=== PATIENT | male | born 1965 | race Caucasian/White ===

== ENCOUNTER 2018-06-17 16:52 | Inpatient (IN) | payer OTHER ==
[~2018-06-17] VITALS: Ht 180.3 cm; Wt 77.1 kg
--- NOTE | 2018-06-17 17:15 | ED GENERAL ADULT ---
See Addendum History of Present Illness General Chief Complaint: General Adult Stated Complaint: BIBA, +ETOH, R SHOULDER PAIN, BILAT FEET PAIN Source: patient Exam Limitations: no limitations Vital Signs & Intake/Output Vital Signs & Intake/Output Vital Signs Date Time Temp Pulse Resp B/P B/P Pulse O2 O2 Flow FiO2 Mean Ox Delivery Rate 06/18 0841 96.5 84 18 137/94 06/18 0841 96.5 84 18 137/94 96 06/18 0534 98.4 96 16 168/84 97 Room Air 06/18 0530 98.4 96 16 168/84 06/18 0334 98.6 85 18 138/90 95 Room Air 06/18 0330 98.6 85 18 138/90 06/18 0147 98.6 102 16 149/94 06/18 0147 98.6 102 16 149/94 96 Room Air 06/18 0030 98.4 99 16 159/96 96 Room Air 06/18 0028 98.4 99 16 159/96 06/17 2235 98.2 81 20 128/81 97 Room Air 06/17 2204 Room Air 06/17 2017 98.4 78 18 124/76 06/17 2017 98.4 78 18 124/76 96 Room Air 06/17 1815 98.4 94 18 147/81 06/17 1653 98.4 94 18 147/81 95 Room Air ED Intake and Output 06/18 0000 06/17 1200 Intake Total 0 Output Total Balance 0 Intake, Oral 0 Patient 170 lb Weight Weight Reported by Patient Measurement Method Allergies Coded Allergies: No Known Allergies (06/17/18) Triage Note: 53 YO MALE VICKY FROM HOME FOR EVAL OF R SHOULDER PAIN AND PAIN TO BIALTERAL FEET. PT REPORTS HE BROKE HIS NECK 8 MONTHS AGO AND HAS HAD THE PAIN IN HIS R SHOULDER SINCE. PT ALSO REPORTS ALL TOES ON BILATERL FEET WERE ALSO AMPUTATED APPROX 8 MONTHS AGO AND HE IS CURRENTLY HAVING PAIN TO FEET. DENIES RECENT INJURY TO R SHOULDER/ARM/NECK. PT ADMITS TO DRINKING 1/2 PINT VODKA DAILY, STATES LAST DRINK WAS THIS AM AND HE HAD 1 SHOT OF VODKA, REPROTS HX OF SEIZURES WITH W/D. Triage Nurses Notes Reviewed? yes Onset: Gradual Duration: week(s): Timing: recent history HPI: 53 year old male presents to the Emergency Department for pain to his right shoulder and bilateral feet. He states that he fell off a roof 1 year ago. Last night he states that he had seizure, and has a history of seizures but was never put on medication for it. Pt admits to daily ETOH use. He appears intoxicated. He denies chest pain. He complains of pain to his right shoulder which is chronic and also pain to his feet which are chronic. 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 Bilateral dorsalis pedis pulses are normal. He has right anterior shoulder tenderness. (Horace Browne DO) Reconcile Medications No Known Home Medications (Natali MENDES,Raffy Dyson) Past History Travel History Traveled to [place] past 21 day No Medical History Any Pertinent Medical History? 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 No (Horace Browne DO) Review of Systems Review of Systems Constitutional: Reports: see HPI. Denies: fever. EENTM: Reports: no symptoms. Denies: double vision, visual changes, eye pain. Respiratory: Reports: no symptoms. Cardiovascular: Reports: no symptoms. Denies: chest pain. GI: Reports: no symptoms. Genitourinary: Reports: no symptoms. Musculoskeletal: Reports: see HPI, joint pain (right shoulder pain). Skin: Reports: no symptoms. Neurological/Psychological: Reports: other (bilateral pedal neuropathy). Hematologic/Endocrine: Reports: no symptoms. Immunologic/Allergic: Reports: no symptoms. All Other Systems: Reviewed and Negative (Horace Browne DO) Physical Exam Physical Exam General Appearance: alert, awake, anxious, mild distress, intoxicated Head: atraumatic, normal appearance Eyes: Bilateral: normal appearance, PERRL, EOMI. Ears, Nose, Throat: normal ENT inspection Neck: normal inspection Respiratory: no respiratory distress Cardiovascular: regular rate/rhythm Peripheral Pulses: 4+ dorsalis pedis (R), 4+ dorsalis pedis (L) Gastrointestinal: non-tender Extremities: tenderness (Right anterior shoulder), Bilateral toe amputations Neurologic/Psych: awake, alert, oriented x 3 Skin: intact, normal color, warm/dry Core Measures ACS in differential dx? No CVA/TIA Diagnosis: No Sepsis Present: No Sepsis Focused Exam Completed? No (Horace Browne DO) Progress Differential Diagnoses I considered the following diagnoses in my evaluation of the patient: [Fracture, dislocation, neuropathy, alcohol intoxication,] Plan of Care: Orders Procedure Date/time Status Heart Healthy Diet 06/18 B Active ED Holding Orders 06/18 1005 Active Admit to inpatient 06/18 1005 Active Vital Signs 06/18 1005 Active Code Status 06/18 1005 Active CASE MANAGEMENT CONSULT 06/18 0434 Active URINE DRUG SCREEN FOR ER ONLY 06/18 0013 Active Continuous Observation Monitor 06/17 2059 Active CIWA 06/17 205 Active ED CRISIS PSYCH CONSULT 06/17 205 Active Durable Medical Equipment 06/17 1828 Active CIWA 06/17 1719 Active MAGNESIUM 06/17 1719 Complete ETHANOL 06/17 171 Complete COMPREHENSIVE METABOLIC PANEL 06/17 171 Complete CBC WITHOUT DIFFERENTIAL 06/17 171 Complete EKG 06/17 171 Active Current Medications Sig/Buzz Start time Last Medication Dose Stop Time Status Admin Oxycodone/ 1 TAB Q4P PRN 06/18 0030 UNVr 06/18 Acetaminophen 0640 (Percocet) Gabapentin 300 MG Q8 06/18 0017 UNVr 06/18 (Neurontin) 0640 Laboratory Tests 06/18/18 1035: Methadone Screen Pending, Barbiturate Screen Pending, Ur Phencyclidine Scrn Pending, Amphetamines Screen Pending, U Benzodiazepines Scrn Pending, Urine Cocaine Screen Pending, Urine Cannabis Screen Pending 06/17/18 1751: Anion Gap 10, Estimated GFR > 60, BUN/Creatinine Ratio 10.0, Glucose 72, Calcium 8.7, Magnesium 1.7, Total Bilirubin 0.9, AST 111 H, ALT 58, Alkaline Phosphatase 60, Total Protein 6.6, Albumin 3.7, Globulin 2.9, Albumin/Globulin Ratio 1.3, CBC w Diff NO MAN DIFF REQ, RBC 4.79, MCV 91.7, MCH 31.6 H, MCHC 34.5, RDW 17.4 H, MPV 7.8, Gran % 63.2, Lymphocytes % 25.2, Monocytes % 9.9 H, Eosinophils % 1.2, Basophils % 0.5, Absolute Granulocytes 3.9, Absolute Lymphocytes 1.6, Absolute Monocytes 0.6, Absolute Eosinophils 0.1, Absolute Basophils 0, Serum Alcohol 230.0 06/17/18 1719: Methadone Screen Cancelled, Barbiturate Screen Cancelled, Ur Phencyclidine Scrn Cancelled, Amphetamines Screen Cancelled, U Benzodiazepines Scrn Cancelled, Urine Cocaine Screen Cancelled, Urine Cannabis Screen Cancelled Initial ED EKG: NSR (@ 89 bpm) (Horace Browne DO) Departure Departure Disposition: STILL A PATIENT Condition: Stable Departure Forms: Customer Survey General Discharge Information Comments 06/17/18 9 PM She complains of suicidal ideation. He will be monitored for CIWA scores during the night. He'll be signed out to Dr. Hurst at 11 PM. He is for crisis evaluation in the a.m. (Horace Browne DO) Departure Clinical Impression Primary Impression: Alcohol dependency Secondary Impressions: Chronic pain, Suicidal ideation, Vomiting Prescriptions: Current Visit Scripts No Known Home Medications Comments 06/18/18 0:15... pt had ciwa score of 12... given history of seizure, pt will merits admission, will require case management eval in AM 06/18/18, 2:02am... pt reports episode of vomiting "dark blood" no clots, not bright red. He flushed the toilet prior to showing staff. He notes several episodes over the past 3 days. Hct and vitals stable. Will give protonix 40mg iv x 1... pt sleeping comfortably... to be evaluated by case management in AM for admission (Natali MENDES,Raffy Dyson) Admission Note Spoke With: Alexa MENDES,Chanel Pompa Documentation of Exam: Documentation of any treatments & extenuating circumstances including Concerns Regarding Discharge (functional status, medication knowledge or non-compliance, living conditions, etc.) that warrant an admission rather than observation: [ Patient has self-reported history of alcohol withdrawal seizure yesterday. Patient did fall and has an acute on chronic proximal humeral fracture of the right humerus. Patient received state approval for admission for alcohol withdrawal. Patient will need Ativan based on his CIWA score. Social work consultation for further treatment once he is medically discharged. He will need an orthopedic consultation. Pain control, keep arm in sling.] Alcohol Withdrawl Admission ED Alcohol Detox Admission d/t: DTs/Seizure w/i last year (Lucrecia MENDES,Jamin Syed) Critical Care Note Critical Care Note Critical Care Time: non-applicable (Horace Browne DO)
--- NOTE | 2018-06-17 18:09 | RADIOLOGY REPORT ---
EXAMINATION: XR SHOULDER, RIGHT CLINICAL INFORMATION: Right shoulder pain. History of fracture. COMPARISON: None TECHNIQUE: Two views of the right shoulder. FINDINGS: There is a chronic comminuted fracture deformity with suspected bony callus formation surrounding the humeral head. Oblique fracture line is visible as well. Sclerotic changes are present at the humeral head. There are mild degenerative changes of the acromioclavicular joint. No discrete soft tissue abnormality seen. The imaged right lung is clear. IMPRESSION: Extensive heterotopic bone and callus formation with an oblique fracture through the humeral head and neck region. The possibility of an acute on chronic fracture cannot be ruled out. Incomplete bony healing phenomenon may also be present at the fracture site. If indicated, further evaluation with an MRI or CT study could be considered in follow-up.
[2018-06-17 18:15] VITALS: BP 147/81
[2018-06-17 18:21] LABS: ABSOLUTE BASOPHIL COUNT 0 /CUMM (0.0-0.2); ABSOLUTE EOSINOPHIL COUNT 0.1 /CUMM (0.0-0.7); ABSOLUTE GRANULOCYTE CT 3.9 /CUMM (1.4-6.5); ABSOLUTE LYMPH COUNT 1.6 /CUMM (1.2-3.4); ABSOLUTE MONOCYTE COUNT 0.6 /CUMM (0.10-0.60); BASOPHIL % 0.5 % (0.0-2.0); EOSINOPHIL % 1.2 % (0-5); GRANULOCYTE % 63.2 % (42.2-75.2); HEMATOCRIT 43.9 % (42-52); MEAN CORPUSCULAR HGB 31.6 PG (27.0-31.0); MEAN CORPUSCULAR HGB CONC 34.5 G/DL (33.0-37.0); MEAN CORPUSCULAR VOLUME 91.7 FL (80.0-94.0); MEAN PLATELET VOLUME 7.8 FL (7.4-10.4); PLATELET COUNT 155 /CUMM (130-400); RBC DISTRIBUTION WIDTH 17.4 % (11.5-14.5); RED BLOOD CELL CT 4.79 /CUMM (4.70-6.10); WHITE BLOOD CELL COUNT 6.2 /CUMM (4.8-10.8)
[2018-06-17 20:17] VITALS: BP 124/76
[2018-06-18] VITALS (10 sets, daily range): BP systolic 130–168; BP diastolic 70–99
--- NOTE | 2018-06-18 11:23 | History & Physical ---
Kaylyn MENDESShanelle 06/18/18 1122: General Information and [facility] MD Statement: I have seen and personally examined SILVANA HOWE and documented this H&P. The patient is a 53 year old M who presented with a patient stated chief complaint of ALCOHOL DETOX, SHOULDER PAIN Source of Information: patient Exam Limitations: no limitations History of Present Illness: This is a 53 year old male with a PMH of fall resulting in reported coma in setting of epidural hematoma, cervical spine fracture, 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 The patient is currently homeless. He has a long history of alcohol abuse since he was young and reports that he had a seizure yesterday. The patient states that he has a history of seizures associated with alcohol use, usually does not remember the episode. However he does remember the episode yesterday clearly. He usually drinks 2 pints of vodka per day. He reports that after he drank the first pint yesterday, he went to sleep, woke up, drank the second pints and then woke up hours later covered in urine. His last drink was last night. He states that he thinks his last seizure episode was about a month ago but is not sure. The patient states that his seizures are usually grand mal in nature. The patient states that he usually drinks "to kill the pain" that he has from his previous accidents. He states that without alcohol, he has chronic abdominal pain, back pain, headaches , daily morning vomiting, eye blurriness. He states that has dizzy spells chronically throughout the day. The patient has never been to rehabilitation or detox. The patient states that he has had previous suicide attempts, "I cut my wrists years ago", never has been admitted to a psych rosales or seen a psychiatrist, never has been on any psychiatric medications. During interview, the patient states that he gets "so angry that he wants to punch somebody". The patient states that while in the ED, he vomited clots of blood 3 times. He states that this happens to him "on and off". His last episode of this was a month ago. The patient states that he normally has diarrhea at baseline and notes that it is usually black or brown. He states that he has abdominal pain if he does not drink alcohol. He also states that he has had chest pain on and off in the previous several weeks and gets short of breath when walking even 10 feet. The patient states that he also had an earache and went to [place], had an episode of near bleeding but stated that they've refused to treat him for an unspecified reason. He denies any dysuria. The patient states all of his problems started when he fell off a roof 2 years ago causing him to be in a coma for 12 months. He stated that he had a brain hematoma, unspecified that was ultimately evacuated and required feeding tube. At the time, he also fractured his cervical spine. 7 months ago, he was hospitalized for frostbite with subsequent amputation of his bilateral toes and also sustained right shoulder fracture status post fall. The patient has had no follow-up for his medical problems and has no PCP. He states that he has current bilateral foot phantom pain. The patient does not ambulate with a walker or cane. 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 He used to live with his mother but after she , his siblings still the house and did not give him any of the money from the sale forcing him to become homeless. At this point, the patient has not spoken to his family in quite some time. He states that he has "nowhere to go". He states that he used to use IV heroin 5 years ago and over the past several years now abuses opiates intranasally. The patient smokes 2 packs of cigars per day since he was a child. He states that sometimes he smokes marijuana. 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 Psychosocial History Smoking Status: Current Everyday Smoker ETOH Use: heavy use Illicit Drug Use: marijuana Review of Systems Review of Systems Constitutional: Reports: weakness. EENTM: Reports: blurred vision, ear pain. Cardiovascular: Reports: chest pain. Respiratory: Reports: short of breath. GI: Reports: abdominal pain, diarrhea, nausea, vomiting. Genitourinary: Reports: no symptoms. Musculoskeletal: Reports: back pain, joint pain. Skin: Reports: no symptoms. Neurological/Psychological: Reports: anxiety, depressed, emotional problems. Hematologic/Endocrine: Reports: no symptoms. Exam & Diagnostic Data Last 24 Hrs of Vital Signs/I&O Vital Signs Date Time Temp Pulse Resp B/P B/P Pulse O2 O2 Flow FiO2 Mean Ox Delivery Rate 06/18 1329 97.4 78 18 154/99 06/18 1328 97.4 78 18 154/99 96 Room Air 06/18 1214 Room Air 06/18 1147 96.9 76 18 141/94 06/18 1125 96.9 76 18 141/94 97 06/18 0841 96.5 84 18 137/94 06/18 0841 96.5 84 18 137/94 96 06/18 0534 98.4 96 16 168/84 97 Room Air 06/18 0530 98.4 96 16 168/84 06/18 0334 98.6 85 18 138/90 95 Room Air 06/18 0330 98.6 85 18 138/90 06/18 0147 98.6 102 16 149/94 06/18 0147 98.6 102 16 149/94 96 Room Air 06/18 0030 98.4 99 16 159/96 96 Room Air 06/18 0028 98.4 99 16 159/96 06/17 2235 98.2 81 20 128/81 97 Room Air 06/17 2204 Room Air 06/17 2017 98.4 78 18 124/76 06/17 2017 98.4 78 18 124/76 96 Room Air 06/17 1815 98.4 94 18 147/81 06/17 1653 98.4 94 18 147/81 95 Room Air Intake & Output 06/18 1600 06/18 0800 06/18 0000 Intake Total 0 Output Total Balance 0 Intake, Oral 0 Patient 170 lb Weight Weight Reported by Patient Measurement Method Physical Exam General Appearance Alert, Oriented X3, Cooperative, No Acute Distress Skin No Rashes Skin Temp/Moisture Exam: Warm/Dry Sepsis Skin Exam (color): Normal for Ethnicity HEENT Atraumatic, PERRLA, EOMI, Mucous Membr. moist/pink Cardiovascular Regular Rate, Normal S1, Normal S2, No Murmurs Lungs Clear to Auscultation, Normal Air Movement Abdomen Normal Bowel Sounds, Soft, abd pain on palpation epigastric Neurological Normal Speech, Strength at 5/5 X4 Ext, Normal Tone, Sensation Intact, Cranial Nerves 3-12 NL, Reflexes 2+ Extremities No Clubbing, No Cyanosis, No Edema Vascular Normal Pulses, Pulses Symmetrical Last 24 Hrs of Labs/[place]: Laboratory Tests 06/18/18 1035: Urine Opiates Screen 267, Methadone Screen < 40, Barbiturate Screen < 60, Ur Phencyclidine Scrn < 6.00, Amphetamines Screen < 100, U Benzodiazepines Scrn < 85, Urine Cocaine Screen < 50, Urine Cannabis Screen 23.70 06/17/18 1751: Anion Gap 10, Estimated GFR > 60, BUN/Creatinine Ratio 10.0, Glucose 72, Calcium 8.7, Phosphorus 3.9, Magnesium 1.7, Total Bilirubin 0.9, AST 111 H, ALT 58, Alkaline Phosphatase 60, Troponin I 0.02, Total Protein 6.6, Albumin 3.7, Globulin 2.9, Albumin/Globulin Ratio 1.3, CBC w Diff NO MAN DIFF REQ, RBC 4.79, MCV 91.7, MCH 31.6 H, MCHC 34.5, RDW 17.4 H, MPV 7.8, Gran % 63.2, Lymphocytes % 25.2, Monocytes % 9.9 H, Eosinophils % 1.2, Basophils % 0.5, Absolute Granulocytes 3.9, Absolute Lymphocytes 1.6, Absolute Monocytes 0.6, Absolute Eosinophils 0.1, Absolute Basophils 0, Serum Alcohol 230.0 06/17/18 1719: Methadone Screen Cancelled, Barbiturate Screen Cancelled, Ur Phencyclidine Scrn Cancelled, Amphetamines Screen Cancelled, U Benzodiazepines Scrn Cancelled, Urine Cocaine Screen Cancelled, Urine Cannabis Screen Cancelled Assessment/Plan Assessment: This is a 53 year old male with a PMH of fall resulting in reported coma in setting of epidural hematoma, cervical spine fracture, 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 Patient notes that he drinks to relieve his neck, foot, shoulder pain. His last drink was yesterday and he usually drinks 2 pints of vodka per day. He states that he is interested in going to rehabilitation. While in the ED he has 3 episodes of bloody vomitus, unwitnessed. He also states that he is actively suicidal, has had past suicide attempts. In the ED, vitals were temperature 98.4, heart rate 94, respiratory rate 18, blood pressure 147/81, 95% oxygen saturation on room air. The patient's labs are within normal limits except for AST of 111, alcohol level 230, U tox otherwise clear. Troponin negative. The patient's shoulder x-ray shows an oblique fracture through the humeral head and neck, cannot rule out acute on chronic. Physical exam was pertinent only for amputation of his bilateral feet and right arm in a sling. Assessment -Alcohol detox in setting of previous history of alcohol-related seizures -Bilateral foot pain status post amputation -Right shoulder pain status post injury, cannot rule out acute on chronic right oblique fracture of the humerus -Suicidal ideation in setting of previous suicide attempts -Unwitnessed hematemesis, stable CBC -Recent history of chest pain and shortness of breath on exertion -Social issues including homelessness Plan -Admit patient to general medical floors for evaluation and treatment -Trend troponins and EKGs -Follow up CBC at 6 PM for hematemesis, stool hemoccults -PT/INR -CIWA with Ativan per CIWA and standing dose of Ativan 2 mg every 6 hours -Ortho consult with physical therapy and occupational therapy -Pain medications Tylenol and ibuprofen -Give thiamine, multivitamin, folate -Zofran for nausea -Case management/social work -Seizure precautions -One-to-one sitter for suicidal ideation with psychiatric consult -21 mg nicotine patch -Records from [facility] DVT prophylaxis with only Alps in setting of hematemesis Patient is full code Regular diet with NO KNIVES OR FORKS As Ranked By This Provider Problem List: 1. Vomiting 2. Suicidal ideation 3. Chronic pain 4. Alcohol dependency Core Measures/Misc (07/14) Acute Coronary Syndrome ACS Diagnosis: No Congestive Heart Failure Congestive Heart Failure Diagnosis No Cerebrovascular Accident CVA/TIA Diagnosis: No VTE (View Protocol) VTE Risk Factors Acute Medical Illness No Mechanical VTE Prophylaxis d/t N/A MechProphylax Ordered No VTE Pharm Prophylaxis d/t Bleeding (Active) Sepsis (View protocol) Sepsis Present: No If YES complete Sepsis Event Note If YES complete Sepsis Event Note Orville Myers 06/18/18 1400: Core Measures/Misc (07/14) Sepsis (View protocol) If YES complete Sepsis Event Note If YES complete Sepsis Event Note Attending MD Review Statement Attending Statement Attending MD Statement: examined this patient, discuss w/resident/PA/CHAR CONVEYOR TENDER, agreed w/resident/PA/CHAR CONVEYOR TENDER, reviewed EMR data (avail), discussed with case mgmt Attending Assessment/Plan: 53 yr old male with pmf of etoh abuse, 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 Pt also had 6-7 months ago frostbite due to which he ended up loosing all his toes. Pt is currently homeless and drinks about 1-2 pints of vodka a day and also does one bag of heroin a week and smokes 2 packs of cigars a day. pt reports having seizure last night and was brought by ambulance to the ED and want to undergo detox. Alcohol intoxication and seizure disorder with seizure episode - pt will be admitted to medicine and we will put him on ciwa protocol and will monitor him for seizures. will start him on ativan 2mg po q6h and prn for withdrawl and seizrues. will start him on mvi, folic acid and thiamine and will give banana bag if not already given in er. Suicidal ideations- will get psych consult. Rt shoulder fracture- will get records from [facility] and will get ortho consult. d/w pt the care plan. Will get SW consult for rehab options.
--- NOTE | 2018-06-18 13:51 | Admission Certification ---
Admission Certification Certification Statement - As attending physician, I certify that at the time of - admission, based on clinical presentation, severity of - symptoms, need for further diagnostic testing and - therapeutic interventions, and risk of adverse outcomes - without in-hospital treatment, in my clinical assessment, - this patient requires an acute hospital stay for a minimum - of two nights or longer. I have also considered psychsocial - factors such as support system, advanced age, financial - issues, cognitive issues, and failed out-patient treatments, - past re-admission history, safety of patient, and lack of - compliance as applicable. Specific rationale supporting this admission is: etoh intoxication and alcohol withdrawl seizure.
--- NOTE | 2018-06-18 18:10 | RADIOLOGY REPORT ---
EXAMINATION: XR CHEST, 2 VIEWS CLINICAL INFORMATION: Tenderness in the chest wall. Presumptive diagnosis: Rib fracture COMPARISON: None TECHNIQUE: PA and lateral views of the chest were obtained. FINDINGS: No consolidation, pneumothorax, or pleural effusion. Coarse lung markings overlying the left midlung likely correspond to the overlying pleural parenchymal scarring. There is mild dependent atelectasis bilaterally. Cardiac and mediastinal contours are normal. Pulmonary vasculature is unremarkable. Trachea is midline. Old healed fractures are suspected at the left ribs posteriorly including the left third, fifth, sixth, and seventh ribs. No acute fractures are identified. There is an old healed fracture at the right proximal humerus. IMPRESSION: No acute cardiopulmonary findings. Old healed left-sided rib fractures. No acute fractures are identified.
[2018-06-18 19:01] LABS: ABSOLUTE BASOPHIL COUNT 0 /CUMM (0.0-0.2); ABSOLUTE EOSINOPHIL COUNT 0.1 /CUMM (0.0-0.7); ABSOLUTE GRANULOCYTE CT 3.1 /CUMM (1.4-6.5); ABSOLUTE LYMPH COUNT 1.1 /CUMM (1.2-3.4); ABSOLUTE MONOCYTE COUNT 0.4 /CUMM (0.10-0.60); BASOPHIL % 0.3 % (0.0-2.0); EOSINOPHIL % 1.9 % (0-5); HEMATOCRIT 41.1 % (42-52); MEAN CORPUSCULAR HGB 31.6 PG (27.0-31.0); MEAN CORPUSCULAR HGB CONC 34.3 G/DL (33.0-37.0); MEAN CORPUSCULAR VOLUME 92.1 FL (80.0-94.0); MEAN PLATELET VOLUME 7.9 FL (7.4-10.4); PLATELET COUNT 121 /CUMM (130-400); RBC DISTRIBUTION WIDTH 17.7 % (11.5-14.5); RED BLOOD CELL CT 4.46 /CUMM (4.70-6.10); WHITE BLOOD CELL COUNT 4.7 /CUMM (4.8-10.8)
[2018-06-19] VITALS (9 sets, daily range): BP systolic 120–160; BP diastolic 60–90
--- NOTE | 2018-06-19 08:25 | PN- Housestaff ---
Kaylyn MENDES,Shanelle 06/[birth year]/18823: Subjective Follow-up For: Alcohol detox Right shoulder pain Suicidal ideation Vague chest pain Abdominal pain Homelessness Subjective: Patient seen and examined. He states that he is in a lot of pain this morning in his right shoulder. He denies any current chest pain, was worked up for ACS yesterday. The patient denies any continued hematemesis that he reported in the ED, unwitnessed by others. The patient is scoring CIWA of 3 for anxiety and nausea/vomiting, last night was 16. His vitals are stable. This afternoon, patient states that he has abdominal pain that is more tender on palpation, nausea, he is scared to eat as to worsen the pain. He has had a bowel movement this morning. Review of Systems Constitutional: Reports: no symptoms. Cardiovascular: Reports: no symptoms. Respiratory: Reports: no symptoms. Gastrointestinal: Reports: abdominal pain. Genitourinary: Reports: no symptoms. Musculoskeletal: Reports: joint pain. Skin: Reports: no symptoms. Neurological/Psychological: Reports: anxiety. Objective Last 24 Hrs of Vital Signs/I&O Vital Signs Date Time Temp Pulse Resp B/P B/P Pulse O2 O2 Flow FiO2 Mean Ox Delivery Rate 06/19 1403 97.4 68 20 160/70 93 Room Air 06/19 0555 97.7 73 20 140/80 06/19 0400 97.0 61 20 160/90 06/19 0400 97.7 73 20 140/80 96 Room Air 06/19 0000 97.1 62 20 160/90 06/19 0000 97.1 62 20 160/90 94 Room Air 06/18 2011 97.7 71 20 130/70 96 Room Air 06/18 1854 97.2 68 18 145/96 06/18 1854 97.2 68 18 145/96 96 Room Air 06/18 1626 Room Air 06/18 1621 98.9 66 22 165/94 06/18 1612 98.9 66 22 165/94 97 Room Air Intake & Output 06/19 1600 06/19 0800 06/19 0000 Intake Total 800 700 Output Total Balance 800 700 Intake, Oral 800 700 Patient 170 lb Weight Weight Reported by Patient Measurement Method Physical Exam General Appearance: Alert, Oriented X3, Cooperative, Mild Distress Skin: No Rashes, No Breakdown, No Significant Lesion Skin Temp/Moisture Exam: Warm/Dry Sepsis Skin Exam (color): Normal for Ethnicity HEENT: Atraumatic, PERRLA, EOMI, Mucous Membr. moist/pink Cardiovascular: Regular Rate, Normal S1, Normal S2, No Murmurs Lungs: Clear to Auscultation, Normal Air Movement Abdomen: Normal Bowel Sounds, Soft, No Hepatospenomegaly, No Masses, patient has pain throughout the abdomen on palpation. Neurological: Normal Speech, Strength at 5/5 X4 Ext, Normal Tone, Sensation Intact, Cranial Nerves 3-12 NL Extremities: No Cyanosis Vascular: Normal Pulses Current Medications: Current Medications Sig/Buzz Start time Last Medication Dose Route Stop Time Status Admin Acetaminophen 650 MG Q6PRN PRN 06/18 1315 AC PO Folic Acid 1 MG DAILY 06/18 1317 AC 06/19 PO 0805 Gabapentin 300 MG Q8 06/18 0017 AC 06/19 PO 1426 Ibuprofen 400 MG Q6P PRN 06/19 1445 DC PO Ibuprofen 400 MG Q6P PRN 06/18 1315 DC 06/19 PO 0403 Ketorolac 0 .STK-MED ONE 06/18 1900 DC Tromethamine .ROUTE Ketorolac 30 MG ONCE ONE 06/18 1800 DC 06/18 Tromethamine IV 06/18 1801 1904 Lorazepam 0 Q1P PRN 06/19 1445 AC PO Lorazepam 2 MG Q6 06/19 1200 AC 06/19 PO 1213 Lorazepam 0 .STK-MED ONE 06/19 0603 DC PO Lorazepam 1 MG ONE ONE 06/19 0600 DC 06/19 PO 06/19 0601 0601 Lorazepam 0 .STK-MED ONE 06/18 1900 DC .ROUTE Lorazepam 0 .STK-MED ONE 06/18 1852 DC PO Lorazepam 0 .STK-MED ONE 06/18 1625 DC .ROUTE Lorazepam 2 MG FOUR TIMES A DAY 06/18 1400 DC 06/19 PO 0803 Lorazepam 0 Q1P PRN 06/18 1330 DC 06/18 IV 2222 Multivitamins 1 TAB DAILY 06/18 1317 AC 06/19 PO 0805 Nicotine 2 MG Q2P PRN 06/18 2015 AC 06/19 PO 0649 Nicotine 21 MG Q24 06/18 1318 AC 06/19 TOP 0805 Omeprazole 40 MG DAILY AC 06/19 0910 AC 06/19 PO 1008 Ondansetron HCl 4 MG Q8P PRN 06/18 1315 AC IV Oxycodone/ 0 .STK-MED ONE 06/18 1618 DC Acetaminophen PO Oxycodone/ 1 TAB Q4P PRN 06/18 0030 AC 06/19 Acetaminophen PO 1426 Thiamine HCl 100 MG DAILY 06/18 1317 AC 06/19 PO 0805 Last 24 Hrs of Lab/[place] Results Last 24 Hrs of Labs/Mics: Laboratory Tests 06/19/18 0905: Anion Gap 6, Estimated GFR > 60, BUN/Creatinine Ratio 11.4, CBC w Diff NO MAN DIFF REQ, RBC 4.78, MCV 93.2, MCH 31.0, MCHC 33.3, RDW 17.8 H, MPV 8.5, Gran % 70.4, Lymphocytes % 18.0 L, Monocytes % 7.9, Eosinophils % 3.4, Basophils % 0.3 , Absolute Granulocytes 3.5, Absolute Lymphocytes 0.9 L, Absolute Monocytes 0.4 , Absolute Eosinophils 0.2, Absolute Basophils 0 06/18/18 1837: Troponin I < 0.01, CBC w Diff NO MAN DIFF REQ, RBC 4.46 L, MCV 92.1, MCH 31.6 H, MCHC 34.3, RDW 17.7 H, MPV 7.9, Gran % 66.0, Lymphocytes % 24.3, Monocytes % 7.5, Eosinophils % 1.9, Basophils % 0.3, Absolute Granulocytes 3.1, Absolute Lymphocytes 1.1 L, Absolute Monocytes 0.4, Absolute Eosinophils 0.1, Absolute Basophils 0 06/18/18 1625: PT 11.0, INR 1.01 Orders CIWA Score (last 24 hrs): 3 max 16 Assessment/Plan Assessment: This is a 53 year old male with a PMH of fall resulting in reported coma in setting of epidural hematoma, cervical spine fracture, 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 Patient notes that he drinks to relieve his neck, foot, shoulder pain. His last drink was yesterday and he usually drinks 2 pints of vodka per day. He states that he is interested in going to rehabilitation. While in the ED he has 3 episodes of bloody vomitus, unwitnessed. He also states that he is actively suicidal, has had past suicide attempts. In the ED, vitals were temperature 98.4, heart rate 94, respiratory rate 18, blood pressure 147/81, 95% oxygen saturation on room air. The patient's labs are within normal limits except for AST of 111, alcohol level 230, U tox otherwise clear. Troponin negative. The patient's shoulder x-ray shows an oblique fracture through the humeral head and neck, cannot rule out acute on chronic. Chest x-ray showed old left healed rib fractures, no acute pulmonary issues. Physical exam was pertinent only for amputation of his bilateral feet and right arm in a sling. Assessment -Alcohol detox in setting of previous history of alcohol-related seizures -Bilateral foot pain status post amputation -Right shoulder pain status post injury, cannot rule out acute on chronic right oblique fracture of the humerus -Suicidal ideation in setting of previous suicide attempts -Unwitnessed hematemesis, stable CBC -Recent history of chest pain and shortness of breath on exertion, ACS ruled out -Abdominal pain in the setting of possible gastritis -Social issues including homelessness -Mild thrombocytopenia most likely secondary to alcoholism Plan -Admitted patient to general medical floors for evaluation and treatment -Troponins and EKGs ruled out ACS -Follow up CBC is normal, no anemia secondary to reported hematemesis -CIWA with Ativan per CIWA and standing dose of Ativan 2 mg every 6 hours, continue for now. We will switch all IV Ativan to by mouth. -Continue Alupent and as an anticonvulsant precaution -Ortho was consulted and stated that as patient is acutely detoxing, they would do no intervention at this time on the right shoulder, they believe the injury to be more of a chronic nature so are requesting that we referred the patient for follow-up outpatient -Pain medications Tylenol and Percocet, ibuprofen stopped for potential gastritis. Protonix 40 mg started. -Etiology of patient's abdominal pain is likely gastritis but we will do CT abdomen and pelvis with contrast to further elucidate the cause. -Guaiac all stools -Give thiamine, multivitamin, folate -Zofran for nausea -Case management/social work for placement once the patient is detoxed. -Seizure precautions -Psychiatry saw the patient for his depression and suicidal ideation. 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 The patient has significant psychosocial stressors as he is homeless. The patient has never had psychiatric treatment or detox. Has a long history of drug and alcohol use. However, acutely, the patient is not suicidal so we will DC the one-to-one sitter and allow patient to have meals with utensils. Psychiatry will reassess the patient when his mental state is clearer regarding the need for an antidepressant -4 pain, psychiatry has suggested caution with opiates given his history of opiate dependence. We will continue to use standard orders, lowest effective doses for pain control. Patient is requiring Percocet, is unable to have NSAIDs as he has evidence of gastritis. -21 mg nicotine patch DVT prophylaxis with only Alps in setting of hematemesis and thrombocytopenia Patient is full code Regular diet Problem List: 1. Shoulder pain, right 2. Vomiting 3. Suicidal ideation 4. Chronic pain 5. Alcohol dependency Pain Ratin Pain Location: Right shoulder and abdomen and bilateral feet, phantom pain Pain Goal: Pain 4 or less Pain Plan: Tylenol and Percocet, no ibuprofen or other NSAIDs secondary to potential gastritis Tomorrow's Labs & Rationales: None Orville Myers 06/19/18 1440: Attending MD Review Statement Attending Statement Attending MD Statement: examined this patient, discuss w/resident/PA/[facility] NURSE, agreed w/resident/PA/[facility]ERAPY NURSE, reviewed EMR data (avail), discussed with nursing, discussed with case mgmt Attending Assessment/Plan: Etoh abuse and withdrawl - CIWA score high yesterday. would cont on ativan 2mg po q6h. would cont prn ativan. will get SW to see the pt to discuss rehab options. Nicotine dependence- cont on patch and prn nicotine gum. Suicidal ideation- [facility]. d/w pt the care plan.
[2018-06-19 10:00] LABS: ABSOLUTE BASOPHIL COUNT 0 /CUMM (0.0-0.2); ABSOLUTE EOSINOPHIL COUNT 0.2 /CUMM (0.0-0.7); ABSOLUTE GRANULOCYTE CT 3.5 /CUMM (1.4-6.5); ABSOLUTE LYMPH COUNT 0.9 /CUMM (1.2-3.4); ABSOLUTE MONOCYTE COUNT 0.4 /CUMM (0.10-0.60); BASOPHIL % 0.3 % (0.0-2.0); EOSINOPHIL % 3.4 % (0-5); GRANULOCYTE % 70.4 % (42.2-75.2); HEMATOCRIT 44.6 % (42-52); MEAN CORPUSCULAR HGB CONC 33.3 G/DL (33.0-37.0); MEAN CORPUSCULAR VOLUME 93.2 FL (80.0-94.0); MEAN PLATELET VOLUME 8.5 FL (7.4-10.4); PLATELET COUNT 119 /CUMM (130-400); RBC DISTRIBUTION WIDTH 17.8 % (11.5-14.5); RED BLOOD CELL CT 4.78 /CUMM (4.70-6.10)
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
[2018-06-19] MEDS ORDERED: GABAPENTIN300 M2 PO (14:33)
[2018-06-19] MEDS ORDERED: FOLIC ACID1 M1 PO (14:33)
[2018-06-19] MEDS ORDERED: VITAMIN B-1100 MG PO (14:33)
[2018-06-19] MEDS ORDERED: ONE DAILY MULT1 EAC2 PO (14:33)
--- NOTE | 2018-06-19 14:38 | Patient Discharge Instructions ---
Discharge Instructions General Discharge Information You were seen/treated for: ALCOHOL DETOX RIGHT SHOULDER PAIN PLACEMENT Special Instructions: PLEASE FOLLOW UP WITH PCP IN ONE WEEK PLEASE FOLLOW UP WITH PSYCHIATRY IN ONE WEEK PLEASE FOLLOW UP WITH ORTHO IN ONE WEEK Diet Continue normal diet: Yes Activity Full Activity/No Limits: Yes Acute Coronary Syndrome Inclusion Criteria At DC or during hospital stay patient has or had the following: ACS DIAGNOSIS No Discharge Core Measures Meds if any: Prescribed or Continued at Discharge Meds if any: NOT Prescribed or Continued at Discharge Congestive Heart Failure Inclusion Criteria At DC or during hospital stay patient has or had the following: CHF DIAGNOSIS No Discharge Core Measures Meds if any: Prescribed or Continued at Discharge Meds if any: NOT Prescribed or Continued at Discharge Cerebrovascular accident Inclusion Criteria At DC or during hospital stay patient has or had the following: CVA/TIA Diagnosis No Discharge Core Measures Meds if any: Prescribed or Continued at Discharge Meds if any: NOT Prescribed or Continued at Discharge Venous thromboembolism Inclusion Criteria VTE Diagnosis No VTE Type NONE VTE Confirmed by (Test) NONE Discharge Core Measures - Per Current guidelines, there needs to be overlap - treatment for the first 5 days of Warfarin therapy. - If discharged on Warfarin prior to 5 days of - overlap therapy, the patient will need to be - assessed for post discharge needs including - *Post discharge parental anticoagulation - *Warfarin and/or parental anticoagulation education - *Follow up date to check INR post discharge At least 5 days overlap therapy as Inpatient No Meds if any: Prescribed or Continued at Discharge Note: Overlap Therapy is Warfarin and Anticoagulant Meds if any: NOT Prescribed or Continued at Discharge
--- NOTE | 2018-06-19 21:26 | CT SCAN REPORT ---
EXAMINATION: CT ABDOMEN AND PELVIS WITH CONTRAST CLINICAL INFORMATION: Abdominal pain. Hematemesis. COMPARISON: None TECHNIQUE: Multidetector volumetric imaging was performed of the abdomen and pelvis following IV administration of 95 mL of Optiray 320 intravenous contrast. Sagittal and coronal reformatted images were obtained on the technologist's workstation. DLP: 412.13 mGy-cm FINDINGS: LUNG BASES: The visualized lung bases are unremarkable. LIVER, GALLBLADDER, AND BILIARY TREE: There is diffuse low attenuation of liver parenchyma due to fatty change. No focal liver lesion. No intrahepatic bile duct dilatation. Right lobe of liver measures 22 cm superior inferior, hepatomegaly. The gallbladder is unremarkable with no evidence of radiopaque gallstones, gallbladder wall thickening, or obvious pericholecystic inflammatory changes. PANCREAS: There is subtle edema around the pancreatic head and uncinate process consistent with a mild pancreatitis. There is no pseudocyst. There is no pancreatic mass. There is no pancreatic duct dilatation. SPLEEN: Unremarkable. ADRENAL GLANDS: Unremarkable. KIDNEYS AND URETERS: The kidneys are normal in size, shape, and attenuation. No hydronephrosis, hydroureter, or calculi seen. No perinephric stranding. There is a 5 mm hypodensity in the periphery cortex upper pole right kidney too small to characterize. Statistically likely small cyst. BLADDER: Unremarkable. GASTROINTESTINAL TRACT: There is mild diverticular changes of the colon. There is no acute abnormality of the bowel. No bowel obstruction. No bowel wall thickening or edema. Moderate volume of stool throughout the colon. The appendix is normal. The small bowel loops are unremarkable. ABDOMINAL WALL: No significant hernia is appreciated. LYMPH NODES: Normal. VASCULAR: There is normal enhancement of the abdominal and pelvic vasculature. There is no varices. There are small calcifications at the wall of the aorta at the bifurcation but no aneurysm or dissection of the aorta. There is normal enhancement of the celiac axis. There is normal enhancement of the WAYNE. The SMA originates from the celiac axis. This is a normal variant. PELVIC VISCERA: Unremarkable. OSSEOUS STRUCTURES: Unremarkable. IMPRESSION: 1. Subtle edema around the pancreatic head and uncinate process consistent with pancreatitis. Clinically correlate. 2. Hepatomegaly with diffuse fatty change of liver.
[2018-06-20 06:40] VITALS: BP 140/100
--- NOTE | 2018-06-20 07:40 | PN- Housestaff ---
Kalyani Reynoso 06/20/18 0740: Subjective Follow-up For: Alcohol detox Pancreatitis Subjective: Patient is seen and examined. He looks very lethargic this morning. CT abdomen pelvis is significant for pancreatitis and also he has an elevated lipase. Patient continued to report of nausea and vomiting. He also reports of severe right shoulder pain. Review of Systems Constitutional: Reports: see HPI. Objective Last 24 Hrs of Vital Signs/I&O Vital Signs Date Time Temp Pulse Resp B/P B/P Pulse O2 O2 Flow FiO2 Mean Ox Delivery Rate 06/20 0851 145/82 06/20 0640 97.4 84 20 140/100 94 Room Air 06/19 2130 98.6 74 20 120/60 96 06/19 1403 97.4 68 20 160/70 93 Room Air 06/19 1400 97.7 73 20 140/80 06/19 1200 97.7 73 20 140/80 06/19 1000 97.7 73 20 140/80 Intake & Output 06/20 1600 06/20 0800 06/20 0000 Intake Total Output Total 400 Balance -400 Output, Urine 400 Physical Exam General Appearance: Cooperative, No Acute Distress, DROWSY Skin: No Rashes Sepsis Skin Exam (color): Normal for Ethnicity HEENT: Atraumatic, PERRLA Neck: Supple Cardiovascular: Normal S1, Normal S2, TACHYCARDIA Lungs: Clear to Auscultation, Normal Air Movement Abdomen: Normal Bowel Sounds, Soft, TENDER ON PALPATION Extremities: RIGHT ARM IN ARM SLING Current Medications: Current Medications Sig/Buzz Start time Last Medication Dose Route Stop Time Status Admin Acetaminophen 650 MG Q6PRN PRN 06/18 1315 AC PO Folic Acid 1 MG DAILY 06/18 1317 AC 06/20 PO 0846 Gabapentin 300 MG Q8 06/18 0017 AC 06/20 PO 0559 Ibuprofen 400 MG Q6P PRN 06/19 1445 DC PO Ibuprofen 400 MG Q6P PRN 06/18 1315 DC 06/19 PO 0403 Lactated Ringer's 1,000 ML Q13H 06/20 0015 AC 06/20 IV 0055 Lorazepam 1.5 MG Q6 06/20 1200 AC PO Lorazepam 0 Q1P PRN 06/19 1445 AC PO Lorazepam 2 MG Q6 06/19 1200 DC 06/20 PO 0559 Lorazepam 2 MG FOUR TIMES A DAY 06/18 1400 DC 06/19 PO 0803 Lorazepam 0 Q1P PRN 06/18 1330 DC 06/18 IV 2222 Morphine Sulfate 2 MG ONCE ONE 06/19 1700 DC 06/19 IV 06/19 1701 1730 Multivitamins 1 TAB DAILY 06/18 1317 06/20 PO 0846 Nicotine 2 MG Q2P PRN 06/18 2015 06/19 PO 0649 Nicotine 21 MG Q24 06/18 1318 06/20 TOP 0846 Omeprazole 40 MG DAILY 06/19 0910 06/20 PO 0559 Ondansetron HCl 4 MG Q8P PRN 06/18 1315 AC IV Oxycodone/ 0 .STK-MED ONE 06/19 2151 DC Acetaminophen PO Oxycodone/ 2 TAB Q4P PRN 06/19 1700 AC 06/20 Acetaminophen PO 0613 Oxycodone/ 1 TAB Q4P PRN 06/18 0030 DC 06/19 Acetaminophen PO 1426 Patient Medication 1 ED ONE ONE 06/19 1815 DC Teaching ED 06/19 1816 Thiamine HCl 100 MG DAILY 06/18 1317 06/20 PO 0846 Last 24 Hrs of Lab/[place] Results Last 24 Hrs of Labs/Mics: ABOVE Assessment/Plan Assessment: This is a 53 year old male with a PMH of fall resulting in reported coma in setting of epidural hematoma, cervical spine fracture, 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 Patient notes that he drinks to relieve his neck, foot, shoulder pain. His last drink was yesterday and he usually drinks 2 pints of vodka per day. He states that he is interested in going to rehabilitation. While in the ED he has 3 episodes of bloody vomitus, unwitnessed. He also states that he is actively suicidal, has had past suicide attempts. Problem list #1 alcohol detox #2 pancreatitis #3 depression #4 opioid dependence Assessment and plan Patient reported of nausea, vomiting and abdominal pain yesterday, his serum lipase is elevated and his CT abdomen pelvis significant for pancreatitis. He was made n.p.o. and started on Ringer's lactate. Patient requested that he wants to eat and was adamant about it. Will start on clear liq diet and monitor for abdominal pain. She did not have any nausea or vomiting after clear liquid diet, he is insisting for a sandwich and is threatening to leave otherwise. We will advance his diet to low fat diet and monitor. CIWA score this morning has been 0, will taper his Ativan to 1.5 every 6 hours round the clock. Patient was evaluated by psychiatrist earlier for his depression and suicidal ideation, patient does not have current suicidal ideation so lizzy was DC'd. For opioid dependence, will try to minimize the use of narcotics. For right shoulder pain, we will provide Lidoderm patch and follow-up. DVT prophylaxis with only Alps in setting of hematemesis and thrombocytopenia Patient is full code Regular diet Problem List: 1. Alcohol dependency Pain Ratin Pain Location: right shoulder/abdomen Pain Goal: Pain 4 or less Pain Plan: percocet 2 tab q4prn Tomorrow's Labs & Rationales: no labs required Orville Myers 06/20/18 1249: Attending MD Review Statement Attending Statement Attending MD Statement: examined this patient, discuss w/resident/PA/INFRASTRUCTURE SOFTWARE ENGINEER, agreed w/resident/PA/INFRASTRUCTURE SOFTWARE ENGINEER, reviewed EMR data (avail), discussed with nursing, discussed with case mgmt Attending Assessment/Plan: Acute pancreatitis from clinical exam as well as on CT scan-Subtle edema around the pancreatic head and uncinate process consistent with actue pancreatitis. Pt NPO since last night but wants to try eating .will try clear liquid diet and see how he does. Acute alcohol withdrawl and intoxication- plan to cont on CIWA protocol and will taper ativan to 1.5mg q6h as pt doing ok. Nicotine dependence - cont on nicotine replacement therapy. encouraged pt to quit. d/w pt the care plan.
[2018-06-20 08:51] VITALS: BP 145/82
--- NOTE | 2018-06-20 13:10 | PN- Psychiatry ---
Assessment/Plan Impression: Patient's mood is improved somewhat. He is understandably preoccupied with physical symptoms. Lipase is elevated and he likely has pancreatitis. He is also complaining of significant pain in his feet and arms. Discussed the possibility of going to a residential rehabilitation program. The patient is agreeable. He is not suicidal or homicidal. There are no psychotic symptoms. Overall tolerating detox well. Opiate use is minimal. Suggestion: Continue detox as ordered Psychopharmacological intervention not required at this time For referral to residential rehabilitation on discharge Can consider high-dose ibuprofen and acetaminophen for pain relief Subjective Subjective: The patient has had abdominal pain. He is frustrated however with his n.p.o. diet. Also complaining of pain in his shoulder and feet. Please at the prospect of going to a residential rehabilitation program. Objective Last 24 Hrs of Vital Signs/I&O Vital Signs Date Time Temp Pulse Resp B/P B/P Pulse O2 O2 Flow FiO2 Mean Ox Delivery Rate 06/20 0851 145/82 06/20 0640 97.4 84 20 140/100 94 Room Air 06/19 2130 98.6 74 20 120/60 96 06/19 1403 97.4 68 20 160/70 93 Room Air 06/19 1400 97.7 73 20 140/80 Intake & Output 06/20 1600 06/20 0800 06/20 0000 Intake Total Output Total 400 Balance -400 Output, Urine 400
[2018-06-20 14:47] VITALS: BP 144/90
[2018-06-20 22:00] VITALS: BP 130/80
[2018-06-20 23:02] VITALS: BP 130/80
[2018-06-21] VITALS (10 sets, daily range): BP systolic 126–148; BP diastolic 86–98
--- NOTE | 2018-06-21 08:24 | PN- Housestaff ---
See Addendum Subjective Follow-up For: Alcohol detox Pancreatitis Subjective: Patient is seen and examined. He looks more awake and alert today. His CIWA score has been consistently 0 and he has not been requiring any as needed Ativan. Patient continues to report of abdominal and shoulder pain and states it is 8/10 but he has a hx of opioid dependence. He also reports of one episode of vomiting yesterday without any hematemesis. Currently denies any chest pain/difficulty breathing/palpitations/suicidal ideations. Review of Systems Constitutional: Reports: see HPI. Objective Last 24 Hrs of Vital Signs/I&O Vital Signs Date Time Temp Pulse Resp B/P B/P Pulse O2 O2 Flow FiO2 Mean Ox Delivery Rate 06/21 0631 98.1 76 20 136/90 92 06/20 2302 98.1 86 20 130/80 96 Room Air 06/20 1447 97.1 79 20 144/90 95 Room Air 06/20 0851 145/82 Intake & Output 06/21 1600 06/21 0800 06/21 0000 Intake Total 1200 Output Total Balance 1200 Intake, IV 600 Intake, Oral 600 Physical Exam General Appearance: Alert, Oriented X3, Cooperative, No Acute Distress Skin: No Rashes, No Breakdown HEENT: Atraumatic Neck: Supple Cardiovascular: Regular Rate, Normal S1, Normal S2 Lungs: coarse breath sounds b/l Abdomen: tender to palpation Neurological: Normal Speech Extremities: Normal Pulses Current Medications: Current Medications Sig/Buzz Start time Last Medication Dose Route Stop Time Status Admin Acetaminophen 650 MG Q6PRN PRN 06/18 1315 AC PO Folic Acid 1 MG DAILY 06/18 1317 AC 06/21 PO 0817 Gabapentin 300 MG Q8 06/18 0017 AC 06/21 PO 0519 Lactated Ringer's 1,000 ML Q13H 06/20 0015 DC 06/21 IV 0223 Lidocaine 1 PAT DAILY 06/20 1000 AC 06/21 TOP 0819 Lorazepam 1 MG Q6 06/21 1200 UNVr PO Lorazepam 1.5 MG Q6 06/20 1200 DC 06/21 PO 0516 Lorazepam 0 Q1P PRN 06/19 1445 AC PO Multivitamins 1 TAB DAILY 06/18 1317 AC 06/21 PO 0817 Nicotine 2 MG Q2P PRN 06/18 2015 AC 06/21 PO 0519 Nicotine 21 MG Q24 06/18 1318 AC 06/21 TOP 0648 Omeprazole 40 MG DAILY 06/19 0910 06/21 PO 0519 Ondansetron HCl 4 MG Q8P PRN 06/18 1315 IV Oxycodone/ 0 .STK-MED ONE 06/20 1020 DC Acetaminophen PO Oxycodone/ 2 TAB Q4P PRN 06/19 1700 06/21 Acetaminophen PO 0517 Patient Medication 1 ED ONE ONE 06/20 1800 DC 06/20 Teaching ED 06/20 1801 1806 Thiamine HCl 100 MG DAILY 06/18 1317 06/21 PO 0817 Last 24 Hrs of Lab/[place] Results Last 24 Hrs of Labs/Mics: as above Assessment/Plan Assessment: This is a 53 year old male with a PMH of fall resulting in reported coma in setting of epidural hematoma, cervical spine fracture, 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 Patient notes that he drinks to relieve his neck, foot, shoulder pain. His last drink was yesterday and he usually drinks 2 pints of vodka per day. He states that he is interested in going to rehabilitation. While in the ED he has 3 episodes of bloody vomitus, unwitnessed. He also states that he is actively suicidal, has had past suicide attempts. Problem list #1 alcohol detox #2 pancreatitis #3 depression #4 opioid dependence Assessment and plan Patient reported of nausea, vomiting and abdominal pain on 06/19, his serum lipase was elevated and his CT abdomen pelvis significant for pancreatitis. The plan was to make him n.p.o. but he insisted to eat so he was placed on low-fat diet. Patient continues to report of abdominal discomfort but denies any nausea or vomiting since yesterday morning. Patient has coarse breath sounds today, will get a chest x-ray and DC his Ringer 's lactate as he is eating. His CIWA score as been consistently 0, will continue to taper his Ativan to 1 mg every 6 today. For opioid dependence, will try to minimize the use of narcotics. For right shoulder pain, we will provide Lidoderm patch and follow-up. For pain management he is on Percocet/ibuprofen/Tylenol. We will check CBCs tomorrow for hemoglobin and platelet count. DVT prophylaxis with only Alps. Patient is full code Regular diet Problem List: 1. Alcohol dependency Pain Ratin Pain Location: abdomen, right shoulder Pain Goal: Pain 4 or less Pain Plan: Percocet/ibuprofen/Tylenol. Tomorrow's Labs & Rationales: cbc
--- NOTE | 2018-06-21 16:27 | RADIOLOGY REPORT ---
EXAMINATION: XR PORTABLE CHEST CLINICAL INFORMATION: Bilateral coarse breath sounds at lung bases. COMPARISON: 06/18/2018. I.e. TECHNIQUE: Portable frontal view of the chest was obtained. FINDINGS: Both lungs are well-expanded and clear. The heart size and pulmonary vascularity is normal. There are old fractures left posterior sixth, seventh and eighth ribs. No new acute fractures seen. IMPRESSION: No acute cardiopulmonary process seen. Old healed left sided rib fractures are stable.
--- NOTE | 2018-06-21 20:41 | Event Note ---
See Addendum Event Note Event Note: 53 year old male with PMH fall resulting in coma; cervical spine fx, h/o alcohol related sz complaining of chest pain. I went to see the patient who reports he has had chest pain for 2 days that is progressive in nature. He describes it as a pressure and points to his epigastrium as the location. It is non radiating. The patient denies n/v, sweating, or SOB. He states he has felt this way prior to having seizures in the past. VS P76 BP 148/98 Sat 89-90%RA Placed patient on 2L NC; sats improved to 94% Exam: Gen: A&O x3; lying in bed Card: RRR no murmurs Resp: rhonchi diffuse Abd: tender to palpation epigastric region Plan: Stat: EKG, BEP, Mg, trop, CXR Continue supplemental oxygen as needed to maintain sats above 90% One time dose Morphine 2mg IV for pain Continue to monitor closely and informed RN that patient mentioned he felt this way prior to sz in past. CIWA at this time <8. Appreciate team effort in care of this patient.
--- NOTE | 2018-06-21 21:21 | RADIOLOGY REPORT ---
EXAMINATION: XR PORTABLE CHEST CLINICAL INFORMATION: Chest pain COMPARISON: None TECHNIQUE: Portable frontal view of the chest was obtained. FINDINGS: Mild crowding of lung markings at RIGHT lung base chronic unchanged. No dense infiltrate/consolidation. No pleural effusion or pneumothorax. Heart mediastinum and amilcar unchanged. Deformity of the RIGHT shoulder, an old fracture unchanged. IMPRESSION: Exam essentially unchanged as above.
[2018-06-22 02:00] VITALS: BP 140/90
[2018-06-22 02:45] VITALS: BP 140/90
[2018-06-22 06:00] VITALS: BP 134/92
[2018-06-22 06:19] VITALS: BP 134/92
--- NOTE | 2018-06-22 08:36 | PN- Housestaff ---
Kalyani Reynoso 06/22/18 0836: Subjective Follow-up For: Alcohol detox Pancreatitis Subjective: Patient is seen and examined lying comfortably in the bed. He is doing well. He reports of 10/10 pain in right shoulder which is intermittent and ongoing. Patient has a history of opioid dependence. Patient denies any headache/dizziness/chest pain/palpitations/difficulty breathing/burning micturition. Review of Systems Constitutional: Reports: see HPI. Objective Last 24 Hrs of Vital Signs/I&O Vital Signs Date Time Temp Pulse Resp B/P B/P Pulse O2 O2 Flow FiO2 Mean Ox Delivery Rate 06/22 0619 98.6 78 20 134/92 92 06/22 0600 98.6 78 20 134/92 06/22 0245 98.0 77 20 140/90 94 Room Air 06/22 0200 98.0 77 20 140/90 06/21 2213 98.5 75 20 148/98 94 06/21 2200 98.1 76 18 148/98 06/21 2030 98.1 76 18 148/98 06/21 1641 138/90 06/21 1600 138/92 06/21 1507 97.9 74 18 134/90 94 Intake & Output 06/22 1600 06/22 0800 06/22 0000 Intake Total 440 440 Output Total Balance 440 440 Intake, IV 0 Intake, Oral 440 440 Number 0 Bowel Movements Physical Exam General Appearance: Alert, Oriented X3, Cooperative, No Acute Distress Skin: No Rashes Skin Temp/Moisture Exam: Warm/Dry HEENT: Atraumatic Neck: Supple Cardiovascular: Regular Rate, Normal S1, Normal S2 Lungs: Clear to Auscultation, Normal Air Movement Abdomen: tender to palpation on epigastric region Extremities: No Edema Assessment/Plan Assessment: Patient is a 53 year old male with a PMH of fall resulting in reported coma in setting of epidural hematoma, cervical spine fracture, 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 Patient notes that he drinks to relieve his neck, foot, shoulder pain. His last drink was yesterday and he usually drinks 2 pints of vodka per day. He states that he is interested in going to rehabilitation. While in the ED he has 3 episodes of bloody vomitus, unwitnessed. He also states that he is actively suicidal, has had past suicide attempts. Problem list #1 alcohol detox #2 pancreatitis #3 depression #4 opioid dependence Assessment and plan Patient is tolerating low-fat diet and reports that his abdominal pain has improved. His CIWA score is between 0 - 4, will continue to taper his Ativan to 0.5 mg every 6 today. Patient reports of right shoulder pain 10/10, intermittent in nature which is ongoing. He is on Percocet/ibuprofen/Tylenol and has been taking attitude. We will continue the same regimen and try to minimize the use of narcotics. For right shoulder pain, we will provide Lidoderm patch and follow-up. No labs for tomorrow DVT prophylaxis with only Alps. Patient is full code Regular diet Problem List: 1. 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 Patient notes that he drinks to relieve his neck, foot, shoulder pain. His last drink was yesterday and he usually drinks 2 pints of vodka per day. He states that he is interested in going to rehabilitation. While in the ED he has 3 episodes of bloody vomitus, unwitnessed. He also states that he is actively suicidal, has had past suicide attempts. Problem list #1 alcohol detox #2 pancreatitis #3 depression #4 opioid dependence Assessment and plan Patient reported of nausea, vomiting and abdominal pain on 06/19, his serum lipase was elevated and his CT abdomen pelvis significant for pancreatitis. The plan was to make him n.p.o. but he insisted to eat so he was placed on low-fat diet. Patient continues to report of abdominal discomfort but denies any nausea or vomiting since yesterday morning. percocet/tylenol Tomorrow's Labs & Rationales: none Yimi MENDESJalen 06/22/186: Attending MD Review Statement Attending Statement Attending MD Statement: examined this patient, discuss w/resident/PA/LIQUOR COMMISSIONER, agreed w/resident/PA/LIQUOR COMMISSIONER, reviewed EMR data (avail), discussed with nursing, amended to note Attending Assessment/Plan: The patient was seen and discussed with house staff. The patient complains of more pain and wishes more narcotics. Is already receiving po Percocet (10 mg) q4h. We just increased gabapentin dose yesterday and will continue current meds. Agree with taper of Ativan. Needs social service follow-up tomorrow as he wishes to be in alcohol program post discharge.
[2018-06-22 09:13] LABS: ABSOLUTE BASOPHIL COUNT 0 /CUMM (0.0-0.2); ABSOLUTE EOSINOPHIL COUNT 0.2 /CUMM (0.0-0.7); ABSOLUTE GRANULOCYTE CT 3.2 /CUMM (1.4-6.5); ABSOLUTE LYMPH COUNT 1.2 /CUMM (1.2-3.4); ABSOLUTE MONOCYTE COUNT 0.6 /CUMM (0.10-0.60); BASOPHIL % 0.4 % (0.0-2.0); EOSINOPHIL % 3.1 % (0-5); GRANULOCYTE % 61.5 % (42.2-75.2); HEMATOCRIT 44.1 % (42-52); MEAN CORPUSCULAR HGB 31.9 PG (27.0-31.0); MEAN CORPUSCULAR HGB CONC 33.8 G/DL (33.0-37.0); MEAN CORPUSCULAR VOLUME 94.2 FL (80.0-94.0); MEAN PLATELET VOLUME 8.1 FL (7.4-10.4); PLATELET COUNT 134 /CUMM (130-400); RBC DISTRIBUTION WIDTH 17.4 % (11.5-14.5); RED BLOOD CELL CT 4.68 /CUMM (4.70-6.10); WHITE BLOOD CELL COUNT 5.2 /CUMM (4.8-10.8)
[2018-06-22 15:20] VITALS: BP 140/90
[2018-06-22 22:18] VITALS: BP 130/90
[2018-06-23] VITALS: BP 130/90
[2018-06-23 06:00] VITALS: BP 136/80
[2018-06-23 06:25] VITALS: BP 136/80
--- NOTE | 2018-06-23 08:08 | PN- Housestaff ---
Subjective Follow-up For: shoulder pain alcohol withdrawal Subjective: patient continues to have right shoulder pain and very decreased ROM. he is eating and tolerating food ok. denies nausea. has mild abdominal pain. vitals are wnl and stable. ciwa is 0->3 overnight. Review of Systems Constitutional: Reports: no symptoms. EENTM: Reports: no symptoms. Cardiovascular: Reports: no symptoms. Respiratory: Reports: no symptoms. Gastrointestinal: Reports: abdominal pain. Genitourinary: Reports: no symptoms. Musculoskeletal: Reports: joint pain. Neurological/Psychological: Reports: anxiety. Objective Last 24 Hrs of Vital Signs/I&O Vital Signs Date Time Temp Pulse Resp B/P B/P Pulse O2 O2 Flow FiO2 Mean Ox Delivery Rate 06/23 1426 98.3 81 18 130/80 93 Room Air 06/23 0625 98.5 64 18 136/80 92 Room Air 06/23 0600 98.5 64 18 136/80 06/23 0000 98.1 70 20 130/90 Intake & Output 06/23 1600 06/23 0800 06/23 0000 Intake Total 800 240 240 Output Total Balance 800 240 240 Intake, Oral 800 240 240 Physical Exam General Appearance: Alert, Oriented X3, Cooperative, No Acute Distress Skin: No Rashes, No Breakdown, No Significant Lesion Sepsis Skin Exam (color): Normal for Ethnicity Cardiovascular: Regular Rate, Normal S1, Normal S2, No Murmurs Lungs: Clear to Auscultation, Normal Air Movement Abdomen: Normal Bowel Sounds, Soft, No Hepatospenomegaly, No Masses Neurological: Normal Speech Extremities: No Clubbing, No Cyanosis, No Edema, right arm decrease ROM in all directions, pain on movement active and pssive, pain on palpation. Current Medications: Current Medications Sig/Buzz Start time Last Medication Dose Route Stop Time Status Admin Acetaminophen 650 MG Q6PRN PRN 06/18 1315 AC PO Folic Acid 1 MG DAILY 06/18 1317 AC 06/23 PO 0857 Gabapentin 600 MG Q8 06/21 1400 AC 06/23 PO 2030 Lidocaine 1 PAT DAILY 06/20 1000 AC 06/23 TOP 0857 Lorazepam 0.5 MG Q6 06/22 1800 AC 06/23 PO 06/28 1159 1708 Lorazepam 0 Q1P PRN 06/19 1445 AC PO Melatonin 5 MG ONCE ONE 06/22 2345 DC 06/22 PO 06/22 2346 2346 Multivitamins 1 TAB DAILY 06/18 1317 06/23 PO 0857 Nicotine 2 MG Q2P PRN 06/18 2015 06/23 PO 1808 Nicotine 21 MG Q24 06/18 1318 06/23 TOP 0857 Omeprazole 40 MG DAILY 06/19 0910 06/23 PO 0633 Ondansetron HCl 4 MG Q8P PRN 06/18 1315 AC IV Oxycodone/ 1 TAB Q4P PRN 06/23 1430 AC 06/23 Acetaminophen PO 2110 Oxycodone/ 2 TAB Q4P PRN 06/19 1700 DC 06/23 Acetaminophen PO 1304 Patient Medication 1 ED ONE ONE 06/23 1030 DC 06/23 Teaching ED 06/23 1031 1305 Thiamine HCl 100 MG DAILY 06/18 1317 06/23 PO 0857 Assessment/Plan Assessment: Patient is a 53 year old male with a PMH of fall resulting in reported coma in setting of epidural hematoma, cervical spine fracture, 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 Patient notes that he drinks to relieve his neck, foot, shoulder pain. His last drink was yesterday and he usually drinks 2 pints of vodka per day. He states that he is interested in going to rehabilitation. While in the ED he has 3 episodes of bloody vomitus, unwitnessed. He also states that he is actively suicidal, has had past suicide attempts. Problem list #1 alcohol detox #2 pancreatitis #3 depression #4 opioid dependence Assessment and plan Patient is tolerating low-fat diet and reports that his abdominal pain has improved. His CIWA score is between 0 - 4, will continue to taper his Ativan to 0.5 mg every 6 today. Patient reports of right shoulder pain 10/10, intermittent in nature which is ongoing. He is on Percocet/ibuprofen/Tylenol and has been taking attitude. We will continue the same regimen and try to minimize the use of narcotics. For right shoulder pain, we will provide Lidoderm patch and follow-up. No labs for tomorrow DVT prophylaxis with only Alps. Patient is full code Regular diet Problem List: 1. 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 Patient notes that he drinks to relieve his neck, foot, shoulder pain. His last drink was yesterday and he usually drinks 2 pints of vodka per day. He states that he is interested in going to rehabilitation. While in the ED he has 3 episodes of bloody vomitus, unwitnessed. He also states that he is actively suicidal, has had past suicide attempts. Problem list #1 alcohol detox #2 pancreatitis #3 depression #4 opioid dependence Assessment and plan -Patient reported of nausea, vomiting and abdominal pain on 06/19, his serum lipase was elevated and his CT abdomen pelvis significant for pancreatitis. The plan was to make him n.p.o. but he insisted to eat so he was placed on low-fat diet. Patient continues to report of abdominal discomfort but denies any nausea or vomiting, is tolerating diet ok. -percocet/tylenol for pain, for patient to qualify for residential rehab he would need to be off narcotics so we will wean percocet -we attempted MRI shoulder but as we cannot be certain if patient had any hardware placed in his head after his brain hematoma sp fall off a roof 2 years ago resulting in a coma we will intead do CT shoulder without contrast. -Follow up social work. -Decrease ativan to .5q6h -For better pain control, gabapentin was increased to 600mg q8h. -Continue PPI patient is full code dvt prophylxis pharmacologic low fat diet Problem List: 1. Shoulder pain, right 2. Alcohol dependency Pain Ratin Pain Location: right shoulder Pain Goal: Pain 4 or less Pain Plan: percocet tylenol Tomorrow's Labs & Rationales: none
--- NOTE | 2018-06-23 10:48 | PN- Att Addend ---
Attending Addendum Attending Brief Note Patient seen and examined, he still complaining of pain in his right shoulder. Patient has limited range of motion of the right shoulder secondary to pain. Currently he is getting Percocet. Vital Signs Date Time Temp Pulse Resp B/P B/P Pulse O2 O2 Flow FiO2 Mean Ox Delivery Rate 06/23 0625 98.5 64 18 136/80 92 Room Air 06/23 0600 98.5 64 18 136/80 06/23 0000 98.1 70 20 130/90 06/22 2218 98.1 70 20 130/90 95 Room Air 06/22 1520 98.4 73 20 140/90 96 Room Air on exam; aox3, nad. cv; s1,s2, rrr resp; clear abd; soft, nt, bs+ ext; no edema ms: right shoulder with limited rom 2/2 to pain. no labs. 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 Will continue to taper ativan. Will also try to taper percocet. Will reduce it to 1 tb q4 for now. Will get right shoulder MRI. Pending MRI results will decide if patient needs any inpatient Ortho consult or not. Continue the rest of the mx. DVt px; ALPS 2/2 to thrombocytopenia, plts count is improving.
[2018-06-23 14:26] VITALS: BP 130/80
[2018-06-23 23:15] VITALS: BP 114/82
[2018-06-24] VITALS: BP 114/82
[2018-06-24 06:00] VITALS: BP 130/76
--- NOTE | 2018-06-24 08:20 | PN- Housestaff ---
Subjective Follow-up For: Alcohol withdrawal Chronic right shoulder fracture with nonunion Subjective: Patient seen and examined. He states that he has continued severe right shoulder pain and decreased range of movement. He is on Percocet 1 tablet every 4 hours when necessary which was decreased from 2 tablets every 4 hours when necessary yesterday. He states that his pain is not controlled. However, the residential rehabilitation facility is requiring the patient to be tapered completely from narcotics and after much discussion he peak grudgingly excepts this. He is currently on Ativan 0.5 mg every 6 hours and his CIWA scores overnight were 0. His vitals are stable. Review of Systems Constitutional: Reports: no symptoms. Cardiovascular: Reports: no symptoms. Respiratory: Reports: no symptoms. Gastrointestinal: Reports: no symptoms. Musculoskeletal: Reports: joint pain. Neurological/Psychological: Reports: no symptoms. Objective Last 24 Hrs of Vital Signs/I&O Vital Signs Date Time Temp Pulse Resp B/P B/P Pulse O2 O2 Flow FiO2 Mean Ox Delivery Rate 06/24 1434 97.0 79 18 128/60 95 Room Air 06/24 0600 98.2 70 18 130/76 06/24 0600 98.2 70 18 130/76 93 Room Air 06/24 0000 98.5 89 18 114/82 06/23 2315 98.5 89 16 114/82 91 Intake & Output 06/24 1600 06/24 0800 06/24 0000 Intake Total 300 200 Output Total Balance 300 200 Intake, Oral 300 200 Physical Exam General Appearance: Alert, Oriented X3, Cooperative, Mild Distress Skin: No Rashes Skin Temp/Moisture Exam: Warm/Dry Cardiovascular: Regular Rate, Normal S1, Normal S2, No Murmurs Lungs: Clear to Auscultation, Normal Air Movement Abdomen: Normal Bowel Sounds, Soft, No Tenderness, No Hepatospenomegaly, No Masses Neurological: Normal Speech Extremities: No Clubbing, No Cyanosis, No Edema, Normal Pulses, patient has severe right shoulder pain, worse on palpation and movement, passive or active. Current Medications: Current Medications Sig/Buzz Start time Last Medication Dose Route Stop Time Status Admin Acetaminophen 650 MG Q6PRN PRN 06/18 1315 AC 06/24 PO 1019 Folic Acid 1 MG DAILY 06/18 1317 AC 06/24 PO 1019 Gabapentin 600 MG Q8 06/21 1400 AC 06/24 PO 1410 Lidocaine 2 PAT DAILY 06/25 0900 AC TOP Lidocaine 1 PAT DAILY 06/20 1000 DC 06/24 TOP 1020 Lorazepam 0.5 MG BID 06/24 2100 DC PO 07/01 2059 Lorazepam 0.5 MG TID 06/24 0943 AC 06/24 PO 07/01 0942 1409 Lorazepam 0.5 MG Q6 06/22 1800 DC 06/24 PO 06/28 1159 0621 Lorazepam 0 Q1P PRN 06/19 1445 AC PO Multivitamins 1 TAB DAILY 06/18 1317 AC 06/24 PO 1019 Nicotine 2 MG Q2P PRN 06/18 2015 AC 06/24 PO 1030 Nicotine 21 MG Q24 06/18 1318 AC 06/24 TOP 1019 Omeprazole 40 MG DAILY AC 06/19 0910 AC 06/24 PO 0621 Ondansetron HCl 4 MG Q8P PRN 06/18 1315 AC IV Oxycodone/ 1 TAB Q8P PRN 06/24 0945 AC 06/24 Acetaminophen PO 1410 Oxycodone/ 1 TAB Q4P PRN 06/23 1430 DC 06/24 Acetaminophen PO 0621 Thiamine HCl 100 MG DAILY 06/18 1317 AC 06/24 PO 1018 Orders CIWA Score (last 24 hrs): 0 Assessment/Plan Assessment: Patient is a 53 year old male with a PMH of fall resulting in reported coma in setting of epidural hematoma, cervical spine fracture, 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 Patient notes that he drinks to relieve his neck, foot, shoulder pain. His last drink was yesterday and he usually drinks 2 pints of vodka per day. He states that he is interested in going to rehabilitation. While in the ED he has 3 episodes of bloody vomitus, unwitnessed. He also states that he is actively suicidal, has had past suicide attempts. Problem list #1 alcohol detox #2 abdominal pain secondary to pancreatitis #3 depression #4 opioid dependence Plan -Patient is tolerating low-fat diet and reports that his abdominal pain has improved. Of note, patient was angry, yelling and be rating staff today and demanding another meal. I had to switch his low-fat diet to regular diet in order to order another meal. The patient was counseled to go slow and not eat too much so as to cause increased abdominal pain. -Continue PPI -His CIWA score is 0 overnight, will continue to taper his Ativan to 0.5 mg 3 times a day today -Patient reports of right shoulder pain 7-06/06, ongoing. He is on Percocet which was tapered yesterday to 1 tab every 4 hours when necessary. We will further taper it to 1 tab every 8 hours when necessary as the residential rehabilitation facility where patient hopes to go after discharge requires full tapering off of narcotics. We will offer the patient another Lidoderm patch. For better pain control, gabapentin was increased to 600mg q8h. -We attempted MRI shoulder but as we cannot be certain if patient had any hardware placed in his head after his brain hematoma sp fall off a roof 2 years ago resulting in a coma we instead did CT shoulder without contrast. -We did a CT scan of the patient's shoulder yesterday which did show no acute fracture but mostly nonunion of his chronic fracture. We have reached out to orthopedist Dr. Medina today to evaluate the patient. No labs for tomorrow DVT prophylaxis with only Alps. Patient is full code Regular diet patient is full code dvt prophylxis pharmacologic low fat diet Problem List: 1. Shoulder pain, right 2. Alcohol dependency Pain Ratin Pain Location: Right shoulder Pain Goal: Pain 4 or less Pain Plan: Percocet 1 tab every 8 hours when necessary, Tylenol 650 every 6 hours when necessary, cannot give NSAIDs secondary to gastritis Tomorrow's Labs & Rationales: None
--- NOTE | 2018-06-24 08:29 | CT SCAN REPORT ---
EXAMINATION: CT UPPER EXTREMITY WITHOUT CONTRAST, RIGHT CLINICAL INFORMATION: Continued pain, decreased range of motion. COMPARISON: Radiograph dated 06/17/2018 TECHNIQUE: Multidetector volumetric imaging was obtained to the right shoulder without contrast material. Multiplanar reformatted images in coronal and sagittal orientations were submitted. DLP: 596 mGy-cm FINDINGS: The dominant fracture line of the chronic comminuted fracture of the proximal humerus is a transverse/oblique fracture line extending through the surgical neck. A small focus of bridging periosteal bone at the anterior margin of the fracture constitutes less than 5 percent osseous union. There is no osseous bridging across the majority of the residual fracture line. A cortical fragment is impacted into the humeral head, reaching the anterosuperior articular surface. The medial articular surface of the humeral head is rotated inferiorly and posteriorly. Multiple chronic fragments of bone at the lesser and greater tuberosities are present around the dominant humeral head fragment. The largest of the greater tuberosity fragments is displaced superiorly by 1.2 cm with solid osseous bridging with the underlying humeral head fracture. There is bridging periosteal bone between the lesser tuberosity fragment and the anterior margin of the humeral head fragment. More tenuous osseous bridging is present at multiple posterior fragments along the infraspinatus tendon attachment to the humeral head. A few of these fragments appear nonunited, the largest of which measures 2.2 x 1.5 x 0.5 cm. A 4 mm osseous loose body is present at the superior aspect of the glenohumeral joint. A smaller 6 cm fragment is present in the inferior aspect of the joint. Significant periosteal bone formation is present around the distal humeral shaft fragment. There is mild generalized atrophy of the rotator cuff musculature. The rotator cuff tendons are not well assessed, inserting on many of the comminuted fragments around the humeral head. There is at least [id number] glenohumeral and acromioclavicular osteoarthritis. IMPRESSION: 1. Chronic comminuted proximal humeral fracture with less than 5 percent osseous union at the anterior margin of the fracture line. No new, acute superimposed fractures are identified. 2. Vevr-ir-bmmeopyg acromioclavicular and glenohumeral osteoarthritis.
[2018-06-24 10:00] VITALS: BP 122/76
--- NOTE | 2018-06-24 12:06 | PN- Att Addend ---
Attending Addendum Attending Brief Note Patient seen and examined, continues to complain of pain in his right shoulder. CT of the upper extremity was done which showed Chronic comminuted proximal humeral fracture with less than 5 percent osseous union at the anterior margin of the fracture line. No new, acute superimposed fractures are identified. Mild -to-moderate acromioclavicular and glenohumeral osteoarthritis. Pt continue to c /o pain in his right shoulder. Vital Signs Date Time Temp Pulse Resp B/P B/P Pulse O2 O2 Flow FiO2 Mean Ox Delivery Rate 06/24 0600 98.2 70 18 130/76 06/24 0600 98.2 70 18 130/76 93 Room Air 06/24 0000 98.5 89 18 114/82 06/23 2315 98.5 89 16 114/82 91 06/23 1426 98.3 81 18 130/80 93 Room Air on exam; aox3, nad cv; s1,s2, rrr resp; clear abd; soft, nt, bs+ ext; no edema ms: limited rom at right shoulder 2/2 to pain. no labs. 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 CT right UE and shoulder yesterday showed Chronic comminuted proximal humeral fracture with less than 5 percent osseous union at the anterior margin of the fracture line. No new, acute superimposed fractures are identified. [id number] acromioclavicular and glenohumeral osteoarthritis. Patient is willing to go to substance abuse rehab. In order for him to do that, he will need to be tapered down on Ativan as well as Percocet. I explained this to the patient and he was upset after hearing this because he is in so much pain. At this point will try to taper his Percocet. Patient was encouraged to take Tylenol as needed. Please increase Lidoderm patch to 2 patches daily. I will try to obtain orthopedic consult although this is a chronic fracture but CT shows less than 5% osseous union and patient in continuous pain. I have placed a consult for Dr. Medina with his service. We will continue to taper Ativan to 3 times daily today and then twice daily tomorrow. Continue the rest of the management. Patient encouraged to ambulate. He will likely go to substance abuse rehab when stable.
[2018-06-24] MEDS ORDERED: GABAPENTIN300 M2 PO (13:12)
[2018-06-24] MEDS ORDERED: TYLENOL325 M1 PO (13:12)
[2018-06-24] MEDS ORDERED: NICORELIEF2 MG PO (13:12)
[2018-06-24] MEDS ORDERED: NICOTINE PATCH1 EAC3 TOP (13:12)
[2018-06-24] MEDS ORDERED: OMEPRAZOLE20 M2 PO (13:12)
--- NOTE | 2018-06-24 13:31 | Discharge Summary ---
Hospital Course Allergies: Coded Allergies: No Known Allergies (06/17/18) Discharge Instructions Medications at Discharge Discharge Medications: Start taking the following new medications: Gabapentin (Gabapentin) 300 MG CAPSULE 300 Milligram ORAL EVERY 8 HOURS Qty = 60 No Refills Folic Acid (Folic Acid) 1 MG TABLET 1 Milligram ORAL DAILY Qty = 30 No Refills Thiamine HCl (Vitamin B-1) 100 MG TABLET 100 Milligram ORAL DAILY Qty = 30 No Refills Multivitamin (One Daily Multivitamin) 1 EACH TABLET 1 Tablet ORAL DAILY Qty = 30 No Refills Nicotine (Nicotine Patch) 21 MG/24 HOUR PATCH.TD24 21 Milligram On the skin EVERY 24 HOURS Qty = 30 No Refills Nicotine (Nicorelief) 2 MG GUM 2 Milligram ORAL EVERY 2 HOURS NEEDED as needed for AGITATION Qty = 60 No Refills Acetaminophen (Tylenol) 325 MG TABLET 650 Milligram ORAL EVERY 6 HOURS NEEDED as needed for PAIN Qty = 60 No Refills Gabapentin (Gabapentin) 300 MG CAPSULE 600 Milligram ORAL EVERY 8 HOURS Qty = 120 No Refills Omeprazole (Omeprazole) 20 MG CAPSULE.DR 40 Milligram ORAL DAILY BEFORE BREAKFAST Qty = 30 No Refills
[2018-06-24 14:00] VITALS: BP 128/60
[2018-06-24 14:34] VITALS: BP 128/60
--- NOTE | 2018-06-24 14:46 | Cons- Orthopedic ---
General Information and HPI Consulting Request Date of Consult: 06/24/18 Requested By: Lucia MENDES,Orville Iglesias History of Present Illness: 53-year-old male with right shoulder pain status post fall approximately a month ago according to the medical service. We recalled by the medical service last week and this week about this patient. Apparently this patient is admitted for alcohol withdrawal. Patient is homeless he is noncompliant. He had a recent x- ray that looked subacute as well as his CT scan which both are subacute fractures of the right proximal humerus with comminution. Mild glenohumeral degenerative changes. This was discussed with Dr. Medina patient would most likely need a hemiarthroplasty of the shoulder due to the comminution his fracture with the possibility of a total shoulder replacement if there is arthritis of the glenohumeral joint. Given the patient's condition with alcohol abuse and noncompliance the patient is not a surgical candidate. At this point time we suggest he remain in a sling follow-up with a rehab outpatient facility. He can pursue elective treatment as an outpatient. This is not an inpatient procedure that needs to be done TAY as this is subacute and would require an elective procedure. Given the fact that the patient has noncompliance issues as well as EtOH abuse he is not an ideal candidate for either surgery at this time. The issue with performing surgery in a noncompliant patient as well as EtOH abuse is the high potential for postoperative complications. This would be an elective procedure and again can be performed and evaluated as an outpatient. Allergies/Medications Allergies: Coded Allergies: No Known Allergies (06/17/18) Home Med List: Acetaminophen (Tylenol) 325 MG TABLET 650 MG PO Q6PRN PRN PAIN Folic Acid 1 MG TABLET 1 MG PO DAILY VITAMIN Gabapentin 300 MG CAPSULE 300 MG PO Q8 SEIZURE Gabapentin 300 MG CAPSULE 600 MG PO Q8 ANXIETY/PAIN Multivitamin (One Daily Multivitamin) 1 EACH TABLET 1 TAB PO DAILY VITAMIN Nicotine (Nicotine Patch) 21 MG/24 HOUR PATCH.TD24 21 MG TOP Q24 SMOKING CESSATION Nicotine (Nicorelief) 2 MG GUM 2 MG PO Q2P PRN AGITATION Omeprazole 20 MG CAPSULE.DR 40 MG PO DAILY AC GASTRITIS Thiamine HCl (Vitamin B-1) 100 MG TABLET 100 MG PO DAILY VITAMIN Past History Medical History Neurological: WITHDRAWL SEIZURE EENT: NONE Cardiovascular: myocardial infarction Respiratory: NONE Gastrointestinal: NONE Hepatic: NONE Renal: NONE Musculoskeletal: NECK FX Psychiatric: NONE Endocrine: NONE Blood Disorders: NONE Cancer(s): NONE MEAT PROCESSOR/Reproductive: NONE Surgical History Pertinent Surgical History: Bilateral toes amputated Psychosocial History Where Do You Live? Other Services at Home: None Smoking Status: Current Everyday Smoker ETOH Use: heavy use Illicit Drug Use: marijuana Review of Systems Review of Systems: see chart Exam & Diagnostic Data Vital Signs and I&O Vital Signs Date Time Temp Pulse Resp B/P B/P Pulse O2 O2 Flow FiO2 Mean Ox Delivery Rate 06/24 1434 97.0 79 18 128/60 95 Room Air 06/24 0600 98.2 70 18 130/76 06/24 0600 98.2 70 18 130/76 93 Room Air 06/24 0000 98.5 89 18 114/82 06/23 2315 98.5 89 16 114/82 91 Intake & Output 06/24 1600 06/24 0800 06/24 0000 06/23 1600 06/23 0800 06/23 0000 Intake Total 300 200 800 240 240 Output Total Balance 300 200 800 240 240 Intake, Oral 300 200 800 240 240 Assessment/Plan Assessment/Plan Subacute right proximal humerus comminuted fracture -Patient can follow-up with an orthopedist as an outpatient to pursue elective treatment options. At this point time I recommend remain in the sling. Consult Acknowledgment - Thank you for your consult request.
[2018-06-24 22:20] VITALS: BP 120/84
[2018-06-25] VITALS: BP 120/84
[2018-06-25 05:42] VITALS: BP 124/82
[2018-06-25 06:00] VITALS: BP 124/84
--- NOTE | 2018-06-25 07:00 | PN- Housestaff ---
Evelio MENDES,Flo 06/25/18 0700: Subjective Follow-up For: Alcohol withdrawal Right shoulder pain Subjective: Patient seen earlier in the morning. He still reports right shoulder pain and expresses reservation regarding not being able to gait appeared pain medication once his discharge to the alcohol rehabilitation facility. He denies any anxiety, hallucination, nightmares, tremors, or seizure-like activities. His overnights CIWA scores have remained 0. He still complains of moderate right shoulder pain, however he has been seen by the medical staff ambulating around the general medicine floor with no apparent distress. Review of Systems Constitutional: Reports: see HPI. Objective Last 24 Hrs of Vital Signs/I&O Vital Signs Date Time Temp Pulse Resp B/P B/P Pulse O2 O2 Flow FiO2 Mean Ox Delivery Rate 06/25 0600 98.3 95 18 124/84 06/25 0542 98.4 90 20 124/82 94 Room Air 06/25 0000 98.5 95 19 120/84 06/24 2220 98.5 95 19 120/84 96 Room Air 06/24 1600 Room Air Intake & Output 06/25 1600 06/25 0800 06/25 0000 Intake Total 200 200 Output Total Balance 200 200 Intake, Oral 200 200 Physical Exam General Appearance: Alert, Oriented X3, Cooperative Other Physical Findings: Skin: No Rashes Skin Temp/Moisture Exam: Warm/Dry Cardiovascular: Regular Rate, Normal S1, Normal S2, No Murmurs Lungs: Clear to Auscultation, Normal Air Movement Abdomen: Normal Bowel Sounds, Soft, No Tenderness, No Hepatospenomegaly, No Masses Neurological: Normal Speech Extremities: No Clubbing, No Cyanosis, No Edema, Normal Pulses, decreased rom on right shoulder due to pain, howerver appears to be improving compared to previous days. 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 Patient notes that he drinks to relieve his neck, foot, shoulder pain. His last drink was yesterday and he usually drinks 2 pints of vodka per day. He states that he is interested in going to rehabilitation. While in the ED he has 3 episodes of bloody vomitus, unwitnessed. He also states that he is actively suicidal, has had past suicide attempts. Problem list #1 alcohol detox #2 abdominal pain secondary to pancreatitis #3 depression #4 opioid dependence #5 Chronic comminuted proximal humeral fracture with less than 5 percent osseous union at the anterior margin of the fracture line. No new, acute superimposed fractures are identified. #6 Psom-ju-jehjewbb acromioclavicular and glenohumeral osteoarthritis. Assessment and plan Patient clinical status has improved compared to previous days. He is free from any abdominal pain, his CIWA socre have been "0" for the last 24-48 hrs and has been on lorazepam 0.5 mg every 8hrs. will taper off his lorazepam by having him take 0.5 mg twice a day today and then 1 tablet of 0.5 tomorrow morning prior to discharge to the rehabilitation facility. Regarding his right shoulder pain, patient is aware of the conundrum of the medical team not able to prescribe him opioid medication upon discharge since alcohol rehabilitation facilities required patience to be of any opioids medications. Ideally an anti- inflammatory would've addressed his pain however given that his history of chronic alcohol use and reported 3 episodes of unwitnessed bloody vomitus versus hematemesis, an NSAID will not be ideal in his case given the increased risk of upper GI bleed from peptic ulcer or his alcoholic gastritis scenario. We'll continue with Percocet for today and taper tomorrow morning, lidocaine and acetaminophen is also being used. Patient has been informed and is fully aware of the fact that he will not be discharged on opiates medication. He will be discharged with a right shoulder sling, and per orthopedics recommendation, he is to follow-up on an outpatient basis to explore elective treatment options. Problem List: 1. Alcohol dependency 2. Shoulder pain, right Pain Ratin Pain Location: shoulder pain Pain Goal: Pain 4 or less Pain Plan: per pathway Tomorrow's Labs & Rationales: shilpi-discharge tomorrow am Tex MENDES,Patsy 06/25/18 1123: Attending Review Statement Attending Statement Attending Statement: examined this patient, discuss w/resident/PA/HOT DIP GALVANIZER, agreed w/resident/PA/HOT DIP GALVANIZER, reviewed EMR data (avail), discussed with nursing, discussed with case mgmt, reviewed images, amended to note Attending Assessment/Plan: Patient seen and examined, continues to complain of pain in his right shoulder. Patient was seen by orthopedics yesterday. I appreciate their input. We do not recommend any urgent surgery but patient will need to follow-up as an outpatient. Vital Signs Date Time Temp Pulse Resp B/P B/P Pulse O2 O2 Flow FiO2 Mean Ox Delivery Rate 06/25 0600 98.3 95 18 124/84 06/25 0542 98.4 90 20 124/82 94 Room Air 06/25 0000 98.5 95 19 120/84 06/24 2220 98.5 95 19 120/84 96 Room Air 06/24 1600 Room Air 06/24 1434 97.0 79 18 128/60 95 Room Air 06/24 1400 97.0 79 18 128/60 on exam; aox3, nad. cv; s1,s2, rrr resp; clear abd; soft, nt, bs+ ext; no edema no labs. 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 CAT scan showed chronic proximal humeral fracture. Appreciate orthopedic input. They do not recommend any urgent intervention but patient would need to follow as an outpatient. We will continue to taper his Ativan to twice daily today and 1 dose in the morning. We will continue the same dose of Percocet today. Patient continues to complain of pain but we did try to explain to him about the rationale of not using narcotics judiciously. We are actually trying to taper his narcotics. Patient willing to go to substance abuse rehab and oncology social worker actively working on that. These substance abuse rehab places do not encourage any narcotics or alcohol intake. Patient encouraged to ambulate, work with physical therapy and try to take nonnarcotic medications for the pain control. Unfortunately due to his history of chronic alcohol use with the possibility of alcoholic gastritis and reported bloody vomiting in the emergency room, and states is not an option due to risk for upper GI bleed. Continue Lidoderm patch and other medications. Patient will benefit by going to substance abuse rehab if there is a bed available tomorrow.
[2018-06-25 15:08] VITALS: BP 130/84
[2018-06-25 22:37] VITALS: BP 124/82
[2018-06-26] VITALS: BP 124/82
--- NOTE | 2018-06-26 06:41 | PN- Housestaff ---
Evelio MENDES,[facility] 06/26/18 0640: Subjective Follow-up For: Etoh withdrawal Subjective: Seen and examined. He is laying in bed comfortably. Endorsing no fever/chills, no anxiety. Review of Systems Constitutional: Reports: no symptoms. Objective Last 24 Hrs of Vital Signs/I&O Vital Signs Date Time Temp Pulse Resp B/P B/P Pulse O2 O2 Flow FiO2 Mean Ox Delivery Rate 06/26 0000 98.0 70 20 124/82 06/25 2237 98.0 70 20 12482 97 Room Air 06/25 1508 98.3 78 18 130/84 94 Intake & Output 06/26 1600 06/26 0800 06/26 0000 Intake Total 240 500 Output Total Balance 240 500 Intake, Oral 240 500 Physical Exam General Appearance: Alert, Oriented X3, Cooperative Other Physical Findings: kin Temp/Moisture Exam: Warm/Dry Cardiovascular: Regular Rate, Normal S1, Normal S2, No Murmurs Lungs: Clear to Auscultation, Normal Air Movement Abdomen: Normal Bowel Sounds, Soft, No Tenderness, No Hepatospenomegaly, No Masses Neurological: Normal Speech Extremities: No Clubbing, No Cyanosis, No Edema, Normal Pulses, improved rom on right shoulder Assessment/Plan Assessment: 53 year old male with a PMH of fall resulting in reported coma in setting of epidural hematoma, cervical spine fracture, 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 Patient notes that he drinks to relieve his neck, foot, shoulder pain. His last drink was yesterday and he usually drinks 2 pints of vodka per day. He states that he is interested in going to rehabilitation. While in the ED he has 3 episodes of bloody vomitus, unwitnessed. He also states that he is actively suicidal, has had past suicide attempts. Problem list #1 alcohol detox #2 abdominal pain secondary to pancreatitis #3 depression #4 opioid dependence #5 Chronic comminuted proximal humeral fracture with less than 5 percent osseous union at the anterior margin of the fracture line. No new, acute superimposed fractures are identified. #6 [id number]-[id number] acromioclavicular and glenohumeral osteoarthritis. Assesment and Plan Medically stable with no reported etoh withdrawal complications. Rehab placement application wasa rejected. Disposition is now to discharge to home. Pt aware he is to f/u with orthopedics on outpatient basis (referral provided). Problem List: 1. Alcohol dependency 2. Shoulder pain, right Pain Ratin Pain Location: right shoulder Pain Goal: Remain pain free Pain Plan: per pathway Tomorrow's Labs & Rationales: none-discharged Ramirez Nice MDesha 06/26/18 1322: Attending MD Review Statement Attending Statement Attending MD Statement: examined this patient, discuss w/resident/PA/HELMET BINDER, agreed w/resident/PA/HELMET BINDER, reviewed EMR data (avail), discussed with nursing, discussed with case mgmt, amended to note Attending Assessment/Plan: Patient seen and examined, still complains of right shoulder pain. Spoke with social media specialist Dari Li. Unfortunately patient was not accepted at [facility] substance abuse rehab program. Patient will ultimately go home. Unfortunately he has no place to live and he saying that he will go to a friend's house. He kept asking about his Percocet. We will not give him any prescription for Percocet but will try to control his pain before he leaves. He is finished with his Ativan taper. Medically he is otherwise stable for discharge today.
== END 2018-06-26 13:42 | DRG 773 ==
LOC: ERH 16:52 → 2NA 06-18 10:05 → ERHI 06-18 10:05 → ENRESERV 06-18 17:59 → ENTRNSPT 06-18 19:24 → 2NA 06-18 19:49 → EDTRNSPTSTS 06-18 19:54 → EDTRNSPT 06-18 19:54 → CMPTRNSPT 06-18 20:11 → 2NA 06-26 08:27
PROVIDERS: Emergency Medicine; Internal Medicine; Student in an Organized Health Care Education/Training Program
DX: F10.239 Alcohol dependence with withdrawal, unspecified (principal); Y90.7 Blood alcohol level of 200-239 mg/100 ml; R45.851 Suicidal ideations; R11.10 Vomiting, unspecified; F17.210 Nicotine dependence, cigarettes, uncomplicated; Z59.0 Homelessness; K85.90 Acute pancreatitis without necrosis or infection, unspecified; Z89.422 Acquired absence of other left toe(s); Z89.421 Acquired absence of other right toe(s); Z89.412 Acquired absence of left great toe; Z89.411 Acquired absence of right great toe; F32.9 Major depressive disorder, single episode, unspecified; M19.011 Primary osteoarthritis, right shoulder; S42.201A Unspecified fracture of upper end of right humerus, initial encounter for closed fracture; W19.XXXA Unspecified fall, initial encounter; Z91.81 History of falling; F12.90 Cannabis use, unspecified, uncomplicated; I25.2 Old myocardial infarction; Z91.5 Personal history of self-harm; F11.20 Opioid dependence, uncomplicated
CPT/HCPCS: 2NAP; 36415; 36592; 71045; 71046; 73030-RT; 74177; 80307; 82436; 93005; 93010; 96374; 96375; 97110-GO; 97112-GO; 97116-GO; 97161-GP; 97162-GP; 97166-GO; 97530-GO; 99233; G0480; J1885; J2405; J3490; J7120

== ENCOUNTER 2018-07-13 17:07 | Emergency (ER) | payer OTHER ==
[~2018-07-13 17:07] MED LIST: FOLIC ACID1 M1 PO; GABAPENTIN300 M2 PO; NICORELIEF2 MG PO; NICOTINE PATCH1 EAC3 TOP; OMEPRAZOLE20 M2 PO; ONE DAILY MULT1 EAC2 PO; TYLENOL325 M1 PO; VITAMIN B-1100 MG PO
--- NOTE | 2018-07-13 18:02 | ED GENERAL ADULT ---
History of Present Illness General Chief Complaint: Abdominal Pain/Flank Pain Stated Complaint: VOMITING BLOOD Source: patient Exam Limitations: poor historian Vital Signs & Intake/Output Vital Signs & Intake/Output Vital Signs Date Time Temp Pulse Resp B/P B/P Pulse O2 O2 Flow FiO2 Mean Ox Delivery Rate 07/13 2015 98.1 84 20 143/80 98 Room Air 07/13 1722 97.6 92 20 132/77 93 Room Air Allergies Coded Allergies: No Known Allergies (06/17/18) Reconcile Medications Acetaminophen (Tylenol) 325 MG TABLET 650 MG PO Q6PRN PRN PAIN Folic Acid 1 MG TABLET 1 MG PO DAILY VITAMIN Gabapentin 300 MG CAPSULE 600 MG PO Q8 ANXIETY/PAIN Multivitamin (One Daily Multivitamin) 1 EACH TABLET 1 TAB PO DAILY VITAMIN Nicotine (Nicotine Patch) 21 MG/24 HOUR PATCH.TD24 21 MG TOP Q24 SMOKING CESSATION Nicotine (Nicorelief) 2 MG GUM 2 MG PO Q2P PRN AGITATION Omeprazole 20 MG CAPSULE.DR 40 MG PO DAILY AC GASTRITIS Thiamine HCl (Vitamin B-1) 100 MG TABLET 100 MG PO DAILY VITAMIN Triage Note: PT BIBA S/P FRIEND CALLED EMS FOR PT C/O VOMITED BLOOD THIS MORNING AT 0600. PT C/O ABDOMINAL PAIN. UNSURE OF CHARACTER/COLOR OF STOOL. PT ALSO REPORTED HAVING DRANK 2 SHOTS OF BARBARA TODAY. Triage Nurses Notes Reviewed? yes HPI: Patient presents for evaluation of "pain all over". Patient states that his whole body is hurting. He has pain relative to his bilateral toe amputations that has been present for 6 months. He has had pain in his neck and right shoulder for the past 2 years after trauma. Patient has no primary care physician currently. (Shena MENDES,Horace Reyes) Past History Medical History Any Pertinent Medical History? see below for history Neurological: WITHDRAWL SEIZURE EENT: NONE Cardiovascular: myocardial infarction Respiratory: NONE Gastrointestinal: NONE Hepatic: NONE Renal: NONE Musculoskeletal: NECK FX Psychiatric: NONE Endocrine: NONE Blood Disorders: NONE Cancer(s): NONE PAID SEARCH ANALYST/Reproductive: NONE History of MRSA: No History of VRE: No History of CDIFF: No Surgical History Surgical History: Bilateral toes amputated Psychosocial History Who do you live with Patient/Self Services at Home None What is your primary language Korean Family History Hx Contributory? No (Horace Chatterjee MD) Review of Systems Review of Systems Constitutional: Reports: no symptoms. EENTM: Reports: no symptoms. Respiratory: Reports: no symptoms. Cardiovascular: Reports: no symptoms. GI: Reports: no symptoms. Genitourinary: Reports: no symptoms. Musculoskeletal: Reports: see HPI. Skin: Reports: no symptoms. Neurological/Psychological: Reports: no symptoms. Hematologic/Endocrine: Reports: no symptoms. Immunologic/Allergic: Reports: no symptoms. All Other Systems: Reviewed and Negative (Shena MENDES,Horace Reyes) Physical Exam Physical Exam General Appearance: SEE BELOW Comments: Gen.: Well-nourished, well-developed, no acute respiratory distress. Disheveled. Head: Normocephalic, atraumatic. Eyes: Normal inspection bilaterally Ears: Normal inspection bilaterally Nose: Normal inspection Throat/mouth : Moist mucosa Neck: Supple, full range of motion, no goiter Heart: Regular rate and rhythm, no murmurs rubs or gallops Lungs: Clear to auscultation bilaterally with normal air entry Chest: Nontender Back: Normal range of motion Abdomen: Soft, nontender, nondistended, normal bowel sounds Extremities: Normal range of motion grossly, equal radial pulses, no cyanosis clubbing or edema, bilateral partial metatarsal amputations without evidence of cellulitis. Right shoulder: Decreased range of motion secondary to pain, the right upper extremity is otherwise neurovascularly intact distally. Neurologic: Cranial nerves grossly intact, speech is clear Skin: warm and dry, no rashes Psychiatric: Calm, cooperative, no apparent delusions or hallucinations Core Measures ACS in differential dx? No CVA/TIA Diagnosis: No Sepsis Present: No Sepsis Focused Exam Completed? No (Shena MENDES,Horace Reyes) Progress Differential Diagnoses I considered the following diagnoses in my evaluation of the patient: DKA, dehydration, anemia, electrolyte abnormality, metabolic acidosis, chronic pain syndrome Plan of Care: Orders Procedure Date/time Status URINE DRUG SCREEN FOR ER ONLY 07/13 1807 Complete URINALYSIS 07/13 1807 Complete MAGNESIUM 07/13 1807 Complete ETHANOL 07/13 1807 Complete COMPREHENSIVE METABOLIC PANEL 07/13 1807 Complete CBC WITHOUT DIFFERENTIAL 07/13 1807 Complete Laboratory Tests 07/13/18 1953: Urine Opiates Screen < 100, Methadone Screen < 40, Barbiturate Screen < 60, Ur Phencyclidine Scrn < 6.00, Amphetamines Screen 104, U Benzodiazepines Scrn < 85, Urine Cocaine Screen < 50, Urine Cannabis Screen 10.40, Urine Color YEL, Urine Clarity CLEAR, Urine pH 6.0, Ur Specific [place] 1.020, Urine Protein NEG, Urine Ketones NEG, Urine Nitrite NEG, Urine Bilirubin NEG, Urine Urobilinogen 0.2, Ur Leukocyte Esterase NEG, Ur Microscopic SEDIMENT EXAMINED, Urine RBC RARE, Ur Epithelial Cells RARE, Urine Mucus RARE, Urine Hemoglobin TRACE-INTACT H, Urine Glucose NEG 07/13/18 1835: Anion Gap 13, Estimated GFR > 60, BUN/Creatinine Ratio 13.8, Glucose 97, Calcium 9.2, Magnesium 1.6, Total Bilirubin 0.6, AST 95 H, ALT 49, Alkaline Phosphatase 67, Total Protein 7.0, Albumin 4.2, Globulin 2.8, Albumin/Globulin Ratio 1.5, CBC w Diff NO MAN DIFF REQ, RBC 4.69 L, MCV 94.0, MCH 31.7 H, MCHC 33.8, RDW 16.4 H, MPV 7.4, Gran % 52.2, Lymphocytes % 36.7, Monocytes % 6.8, Eosinophils % 3.8, Basophils % 0.5, Absolute Granulocytes 2.4, Absolute Lymphocytes 1.7, Absolute Monocytes 0.3, Absolute Eosinophils 0.2, Absolute Basophils 0, Serum Alcohol 245.0 Initial ED EKG: none Comments: 07/13/2018 7 PM patient's case signed out to Dr. Hurst at shift loom changer. (Shena MENDES,Horace Reyes) Differential Diagnoses I considered the following diagnoses in my evaluation of the patient: (Natali MENDES,Raffy Dyson) Departure Departure Disposition: STILL A PATIENT Condition: Stable Clinical Impression Primary Impression: Chronic pain syndrome Referrals: Patient Has No Primary Care Dr (PCP/Family) Departure Forms: Customer Survey General Discharge Information (Shena MENDES,Horace Reyes) Departure Comments 07/13/18, 21:36,,,, pt with benign labs, feeling well, safe for discharge... close follow up advised. (Natali MENDES,Raffy Dyson) Critical Care Note Critical Care Note Critical Care Time: non-applicable (Natali MENDES,Raffy Dyson)
[2018-07-13 19:03] LABS: ABSOLUTE BASOPHIL COUNT 0 /CUMM (0.0-0.2); ABSOLUTE EOSINOPHIL COUNT 0.2 /CUMM (0.0-0.7); ABSOLUTE GRANULOCYTE CT 2.4 /CUMM (1.4-6.5); ABSOLUTE LYMPH COUNT 1.7 /CUMM (1.2-3.4); ABSOLUTE MONOCYTE COUNT 0.3 /CUMM (0.10-0.60); BASOPHIL % 0.5 % (0.0-2.0); EOSINOPHIL % 3.8 % (0-5); GRANULOCYTE % 52.2 % (42.2-75.2); MEAN CORPUSCULAR HGB 31.7 PG (27.0-31.0); MEAN CORPUSCULAR HGB CONC 33.8 G/DL (33.0-37.0); MEAN PLATELET VOLUME 7.4 FL (7.4-10.4); PLATELET COUNT 197 /CUMM (130-400); RBC DISTRIBUTION WIDTH 16.4 % (11.5-14.5); RED BLOOD CELL CT 4.69 /CUMM (4.70-6.10); WHITE BLOOD CELL COUNT 4.5 /CUMM (4.8-10.8)
[2018-07-13 20:15] VITALS: BP 143/80
== END 2018-07-13 22:05 ==
LOC: ERH 17:07
PROVIDERS: Emergency Medicine
DX: G89.29 Other chronic pain (principal); Z87.891 Personal history of nicotine dependence; F41.9 Anxiety disorder, unspecified
CPT/HCPCS: 80307; 81001; G0480